=== PATIENT | female | born 1935 | race Caucasian/White ===

== ENCOUNTER 2019-01-06 13:29 | Inpatient (IN) | payer MEDICARE, OTHER ==
[~2019-01-06] VITALS: Ht 154.9 cm; Wt 49.4 kg
[2019-01-06 13:00] VITALS: BP 128/56
[~2019-01-06 13:29] MED LIST: ASPI81TA31 PO; Acetaminophen PO; BUME1TAB5 PO; LEVO25TA9 PO; MAGN400O6 PO; Metoprolol Tartrate PO; PANT40TA2 PO; WARF1TAB2 PO; WARF3TAB29 PO; Zolpidem Tartrate PO
--- NOTE | 2019-01-06 14:00 | NUR ---
PT ADMITTED MD GRANADOS HERE SAYS HE WILL DO ADMIT ORDERS FOR [facility]
[2019-01-06] MEDS ORDERED: FURO20TA4 PO (14:21)
[2019-01-06] MEDS ORDERED: ZOLP5TAB2 PO (14:21)
[2019-01-06] MEDS ORDERED: WARF2.5T47 PO (14:21)
[2019-01-06] MEDS ORDERED: METO25TA6 PO (14:21)
[2019-01-06] MEDS ORDERED: LEVO25TA2 PO (14:21)
[2019-01-06] MEDS ORDERED: PRED20TA PO (14:21)
[2019-01-06] MEDS ORDERED: DEXTROSE 50% 50 ML DISP.SYRIN IV PRN (14:30)
--- NOTE | 2019-01-06 17:00 | NUR ---
LEFT MESG FOR EPIC GROUP TO MD GRANADOS TO RECONCILE MEDS FOR
[2019-01-06] MEDS: BLOOD SUGAR DIAGNOSTIC 1 EACH STRIP VI SCH ×2 (17:29→20:10)
[2019-01-06] MEDS: INSULIN REGULAR, HUMAN 300 UNIT/3 ML VIAL SQ PRN (17:31)
--- NOTE | 2019-01-06 18:37 | NUR ---
LEFT MESG FOR MD GRANADOS TO RECONCILE MEDS.
[2019-01-06] MEDS ORDERED: MAGNESIUM HYDROXIDE 30 ML LIQUID UDC PO PRN (18:45)
[2019-01-06] MEDS ORDERED: ACETAMINOPHEN 325 MG TABLET PO PRN (18:45)
[2019-01-06] MEDS ORDERED: ZOLPIDEM 5 MG TABLET PO PRN (18:45)
[2019-01-06 19:43] VITALS: BP 113/53
[2019-01-06] MEDS ORDERED: METOPROLOL TARTRATE 25 MG TABLET PO SCH (21:00)
--- NOTE | 2019-01-06 21:30 | NUR ---
Received pt in bed, AAO x 3. No acute distress noted. Verbally responsive and able to make needs known. Denies pain or discomfort at this time. All safety measures and fall precautions maintained. BS checked and noted to be 103, no coverage provided per sliding scale as ordered by MD. Call light and all personal belongings within reach. Will continue to monitor.
[2019-01-07 06:18] VITALS: BP 100/53
[2019-01-07] MEDS: PANTOPRAZOLE SODIUM 40 MG TABLET.DR PO SCH (06:24)
[2019-01-07] MEDS: LEVOTHYROXINE SODIUM 25 MCG TABLET PO SCH (06:24)
[2019-01-07] MEDS: BLOOD SUGAR DIAGNOSTIC 1 EACH STRIP VI SCH ×4 (06:31→20:12)
[2019-01-07] MEDS ORDERED: WARFARIN SODIUM 2.5 MG TABLET PO SCH (09:00)
[2019-01-07] MEDS ORDERED: LEVOTHYROXINE SODIUM 25 MCG TABLET PO SCH (09:00)
[2019-01-07] MEDS ORDERED: WARF1TAB47 PO (09:05)
[2019-01-07] MEDS: BUMETANIDE 1 MG TABLET PO SCH (09:37)
[2019-01-07] MEDS: ASPIRIN 81 MG TAB.CHEW PO SCH (09:38)
[2019-01-07] MEDS: FUROSEMIDE 20 MG TABLET PO SCH (09:39)
[2019-01-07] MEDS: predniSONE 20 MG TABLET PO SCH (09:40)
[2019-01-07] MEDS: INSULIN REGULAR, HUMAN 300 UNIT/3 ML VIAL SQ PRN ×3 (11:44→20:25)
[2019-01-07] MEDS: METOPROLOL TARTRATE 25 MG TABLET PO SCH ×2 (11:53→20:05)
[2019-01-07] MEDS: WARFARIN SODIUM 2.5 MG TABLET PO SCH (16:40)
[2019-01-07] MEDS: WARFARIN SODIUM 1 MG TABLET PO SCH (16:41)
[2019-01-07 16:50] VITALS: BP 115/57
--- NOTE | 2019-01-07 17:08 | NUR ---
REFUSED HIS AM LABS. ATTEMPTED TO DO THEM THIS AFTERNOON. HE AGAIN REFUSED. NOTIFIED
[2019-01-07 17:58] LABS: *BILIRUBIN,URIN NEGATIVE (NEGATIVE); *CLARITY,URINE CLEAR (CLEAR); *COLOR,URINE YELLOW (YELLOW); *KETONES,URINE NEGATIVE (NEGATIVE); *UROBILINOGEN,URINE 0.2 E.U./dl (NORMAL); LEUKOCYTE ESTERASE ,URINE NEGATIVE (NEGATIVE); NITRITE, URINE NEGATIVE (NEGATIVE); UGLUCOSE NEGATIVE (NEGATIVE)
[2019-01-07 18:09] LABS: *CREATININE,URINE 28.1 mg/dL (30-125); *URINE TOTAL PROTEIN RANDOM < 6.0 mg/dL (<150/24HR)
[2019-01-07 18:23] LABS: *BLOOD, URINE TRACE (NEGATIVE)
[2019-01-07 18:25] LABS: MUCUS,URINE MODERATE /LPF (0-FEW); RBC,URINE 0-3 /HPF (0-3); SQUAMOUS EPITHELIAL CELL,UR FEW /HPF (NONE SEEN); WBC,URINE 0-3 /HPF (0-3)
[2019-01-07 19:33] VITALS: BP 125/63
[2019-01-07 19:41] VITALS: BP 125/63
--- NOTE | 2019-01-07 19:43 | NUR ---
SBAR RECEIVED FROM DAY SHIFT NURSE. PATIENT ALERT AND ORIENTED X 4. NO C/O SOB OR PAIN AT THIS TIME. PATIENT REQUEST SLEEPING MEDICATION FOR THIS EVENING. FAMILY AT BEDSIDE VISITING PATIENT. SIDE RAILS UP BILATERALLY FOR SAFETY. CALL LIGHT AND FREQUENTLY USED ITEMS WITHIN REACH. WILL CONTINUE TO MONITOR.
[2019-01-07] MEDS: ZOLPIDEM 5 MG TABLET PO PRN (20:05)
[2019-01-08 05:34] VITALS: BP 101/47
[2019-01-08] MEDS: LEVOTHYROXINE SODIUM 25 MCG TABLET PO SCH (06:26)
[2019-01-08] MEDS: PANTOPRAZOLE SODIUM 40 MG TABLET.DR PO SCH (06:26)
[2019-01-08] MEDS: BLOOD SUGAR DIAGNOSTIC 1 EACH STRIP VI SCH ×4 (06:32→20:15)
--- NOTE | 2019-01-08 06:40 | NUR ---
PATIENT SLEPT WELL DURING TAXONOMY TEACHER. ALL DUE MEDICATIONS GIVEN-TOLERATED WELL. PATIENT REQUEST MILK OF MAGNESIA AT 2100. BM DURING TAXONOMY TEACHER. PATIENT ASSISTED TO TOILET AND ASSISTED WITH EVENING ADL. SIDE RAILS UP BILATERALLY FOR SAFETY. CALL LIGHT AND FREQUENTLY USED ITEMS WITHIN REACH. WILL ENDORSE TO ONCOMING SHIFT ACCORDINGLY.
[2019-01-08 07:11] LABS: ALANINE AMINOTRANSFERASE 13 U/L (14-59); ALKALINE PHOSPHATASE 73 U/L (50-136); ASPARTATE AMINOTRANSFERASE 16 U/L (15-37); BILIRUBIN,TOTAL 0.5 mg/dL (0.2-1.0); CARBON DIOXIDE 32 mmol/L (21-32); CHLORIDE 101 mmol/L (98-107); CREATININE 1.7 mg/dL (0.6-1.3); GLUCOSE 142 mg/dL (74-106); MAGNESIUM 2.1 mg/dL (1.8-2.4); PHOSPHOROUS 2.8 mg/dL (2.5-4.9); POTASSIUM 4.5 mmol/L (3.5-5.1); TOTAL PROTEIN, SERUM 7.4 g/dL (6.4-8.2); UREA NITROGEN, BLOOD 45 mg/dL (7-18)
[2019-01-08 07:38] LABS: BASOPHILS % (AUTO) 0.3 % (0.0-2.0); EOSINOPHILS # (AUTO) 0.2 K/uL (0.0-0.7); EOSINOPHILS % (AUTO) 1.5 % (0.0-7.0); HEMATOCRIT 36.1 % (31.2-41.9); HEMOGLOBIN 11.7 g/dL (10.9-14.3); LYMPHOCYTES # (AUTO) 1.3 K/uL (20.0-40.0); LYMPHOCYTES % (AUTO) 11.8 % (20.5-51.5); MEAN CORPUSCULAR HEMOGLOBIN 29.5 uug (24.7-32.8); MEAN CORPUSCULAR HGB CONC 33 g/dL (32.3-35.6); MEAN CORPUSCULAR VOLUME 90.8 fL (75.5-95.3); MONOCYTES # (AUTO) 0.8 K/uL (2.0-10.0); MONOCYTES % (AUTO) 7.4 % (0.0-11.0); NEUTROPHILS # (AUTO) 8.7 K/uL (1.8-8.9); PLATELET COUNT (AUTO) 198 K/uL (179-408); RED BLOOD CELL COUNT(AUTO) 3.97 MIL/uL (3.63-4.92)
[2019-01-08] MEDS: INSULIN REGULAR, HUMAN 300 UNIT/3 ML VIAL SQ PRN ×4 (07:50→20:19)
[2019-01-08] MEDS: FUROSEMIDE 20 MG TABLET PO SCH (08:13)
[2019-01-08] MEDS: BUMETANIDE 1 MG TABLET PO SCH (08:13)
[2019-01-08] MEDS: predniSONE 20 MG TABLET PO SCH (08:13)
--- NOTE | 2019-01-08 08:15 | NUR ---
Received patient, awake alert x4. Not in any form of distress, no chest pains SOB or dizziness noted. Denies any pain at the moment. With intact saline lock over right inner forearm, patent and flushed accordingly. On O2 at 1LPM sating well.
[2019-01-08] MEDS: METOPROLOL TARTRATE 25 MG TABLET PO SCH ×2 (08:16→20:15)
[2019-01-08 09:00] VITALS: BP 111/63
[2019-01-08] MEDS: ASPIRIN 81 MG TAB.CHEW PO SCH (09:00)
--- NOTE | 2019-01-08 09:00 | NUR ---
Refused Aspirin and said her previous doctor said she did not need it, discussed risks and benefits but patient refused. Will try to verify with doctor and offer to give medication once again.
--- NOTE | 2019-01-08 11:30 | NUR ---
Tolerated therapy well. Kept on O2 at 1lpm sating well. No SOB, dizziness or chest pains noted. Seen by Dr Gibbs and Dr Gannon. Verified order for Aspirin. Dr Gibbs said it would have different function with Warfarin and she should still take it. Informed patient and discussed risks and benefits but patient still refused and said she has not taken it for 25 years.
[2019-01-08] MEDS: WARFARIN SODIUM 2.5 MG TABLET PO SCH (16:39)
[2019-01-08] MEDS: WARFARIN SODIUM 1 MG TABLET PO SCH (16:39)
[2019-01-08 17:00] VITALS: BP 115/58
[2019-01-08] MEDS ORDERED: WARFARIN SODIUM 1 MG TABLET PO SCH (18:45)
--- NOTE | 2019-01-08 18:50 | NUR ---
Medications tolerated well with apple sauce. Tolerated diet well. Still on O2 at 1lpm, sating well. No SOB, dizziness, chest pains or S/S of hypoglycemia noted.
--- NOTE | 2019-01-08 19:30 | NUR ---
REPORT RECEIVED FROM DAY SHIFT NURSE. PATIENT ALERT AND ORIENTED X 4. FARSI SPEAKING. NO C/O SOB OR PAIN AT THIS TIME. FAMILY AT BEDSIDE VISITING PATIENT. SIDE RAILS UP BILATERALLY FOR SAFETY. CALL LIGHT AND FREQUENTLY USED ITEMS WITHIN REACH. WILL CONTINUE TO MONITOR.
[2019-01-08 19:35] VITALS: BP 101/55
[2019-01-08] MEDS: ZOLPIDEM 5 MG TABLET PO PRN (20:19)
[2019-01-09 05:26] VITALS: BP 139/64
[2019-01-09] MEDS: PANTOPRAZOLE SODIUM 40 MG TABLET.DR PO SCH (06:26)
[2019-01-09] MEDS: LEVOTHYROXINE SODIUM 25 MCG TABLET PO SCH (06:26)
[2019-01-09] MEDS: BLOOD SUGAR DIAGNOSTIC 1 EACH STRIP VI SCH ×4 (06:32→20:21)
--- NOTE | 2019-01-09 06:43 | NUR ---
PATIENT ALERT AND ORIENTED THIS SHIFT. ALL DUE MEDICATIONS GIVEN-TOLERATED WELL. NO BM THIS SHIFT. PATIENT ASSISTED TO TOILET AND WITH EVENING ADL'S. SIDE RAILS UP BILATERALLY FOR SAFETY. CALL LIGHT AND FREQUENTLY USED ITEMS WITHIN REACH. WILL ENDORSE TO ONCOMING SHIFT ACCORDINGLY.
--- NOTE | 2019-01-09 07:45 | NUR ---
Patient noted sitting up in bed, assisted to restroom for toileting needs and to brush teeth, no complaints of pain noted, no signs of distress noted, took all AM medications, call light placed in reach, bed locked and in lowest positon, all needs met at this time
[2019-01-09] MEDS: BUMETANIDE 1 MG TABLET PO SCH (07:58)
[2019-01-09] MEDS: predniSONE 20 MG TABLET PO SCH (07:58)
[2019-01-09] MEDS: ASPIRIN 81 MG TAB.CHEW PO SCH (07:58)
[2019-01-09] MEDS: FUROSEMIDE 20 MG TABLET PO SCH (07:58)
[2019-01-09] MEDS: METOPROLOL TARTRATE 25 MG TABLET PO SCH ×2 (07:58→20:19)
[2019-01-09] MEDS: INSULIN REGULAR, HUMAN 300 UNIT/3 ML VIAL SQ PRN ×4 (08:03→20:25)
[2019-01-09 09:00] VITALS: BP 108/63
--- NOTE | 2019-01-09 13:15 | NUR ---
126/66, 89 HR, 92% on room air, 18 respiration, patient being transported to doctors appointment at this time via [facility] and [facility].
--- NOTE | 2019-01-09 13:45 | NUR ---
INDIVIDUALIZED OVERALL PLAN OF CARE
--- NOTE | 2019-01-09 14:26 | NUR ---
Desk Director Consult: Desk Director presented to ARU to meet with patient to provide support and assess needs. SW consulted with pt's RN Radha about the patient. Per RN, pt is out on a Pass for a Dental Appointment and will not return to the unit until about 5pm. SW inquired about pt's therapy schedule to ensure a time to meet with the patient. Per Radha, in collaboration with therapy team, SW can return to speak with pt at 9:30am tomorrow (01/10/19). SW will follow-up then.
--- NOTE | 2019-01-09 16:34 | NUR ---
Patient returned from dental appointment at 1545, no new orders, no complaints of pain noted, no signs of distress noted, 130/70, 80 HR, 18 pulse, 93% on room air
[2019-01-09] MEDS: WARFARIN SODIUM 2.5 MG TABLET PO SCH (17:15)
[2019-01-09] MEDS: WARFARIN SODIUM 1 MG TABLET PO SCH (17:15)
--- NOTE | 2019-01-09 17:40 | NUR ---
Received nutrition consult for low sugar food. OZ provided patient's son with verbal and handout on low sugar and CCHO 60 gm diet. Son denied pt is diabetic but stated her BG high dues to steroid. OZ explained following CCHO diet will help control BG. Son was receptive to the education. Addendum: 01/09/19 at [address] Amended: Links added.
[2019-01-09 18:29] VITALS: BP 130/70
[2019-01-09] MEDS ORDERED: WARFARIN SODIUM 3 MG TABLET PO SCH (18:45)
--- NOTE | 2019-01-09 19:13 | NUR ---
Shower given this shift Addendum: 01/09/19 at 1915 by GO RUANO RN RN ERROR
[2019-01-09 20:00] VITALS: BP 133/63
[2019-01-10 04:00] VITALS: BP 127/64
[2019-01-10] MEDS: LEVOTHYROXINE SODIUM 25 MCG TABLET PO SCH (06:18)
[2019-01-10] MEDS: PANTOPRAZOLE SODIUM 40 MG TABLET.DR PO SCH (06:18)
[2019-01-10] MEDS: BLOOD SUGAR DIAGNOSTIC 1 EACH STRIP VI SCH ×4 (06:33→20:21)
[2019-01-10 07:11] LABS: BASOPHILS % (AUTO) 0.2 % (0.0-2.0); EOSINOPHILS # (AUTO) 0.1 K/uL (0.0-0.7); EOSINOPHILS % (AUTO) 1.3 % (0.0-7.0); HEMATOCRIT 36.1 % (31.2-41.9); HEMOGLOBIN 11.7 g/dL (10.9-14.3); LYMPHOCYTES % (AUTO) 18.2 % (20.5-51.5); MEAN CORPUSCULAR HEMOGLOBIN 29.6 uug (24.7-32.8); MEAN CORPUSCULAR HGB CONC 33 g/dL (32.3-35.6); MEAN CORPUSCULAR VOLUME 91.1 fL (75.5-95.3); MONOCYTES # (AUTO) 0.9 K/uL (2.0-10.0); MONOCYTES % (AUTO) 8.5 % (0.0-11.0); NEUTROPHILS # (AUTO) 7.8 K/uL (1.8-8.9); NEUTROPHILS % (AUTO) 71.8 % (38.5-71.5); PLATELET COUNT (AUTO) 251 K/uL (179-408); RED BLOOD CELL COUNT(AUTO) 3.97 MIL/uL (3.63-4.92); WHITE BLOOD COUNT (AUTO) 10.9 K/uL (3.8-11.8)
--- NOTE | 2019-01-10 07:35 | NUR ---
Patient noted resting in bed with eyes closed, no complaints of pain at this time, no signs of distress, call light in reach, bed locked and in lowest position, all needs met at this time
[2019-01-10 07:46] LABS: ALANINE AMINOTRANSFERASE 16 U/L (14-59); ALKALINE PHOSPHATASE 63 U/L (50-136); ASPARTATE AMINOTRANSFERASE 20 U/L (15-37); BILIRUBIN,TOTAL 0.4 mg/dL (0.2-1.0); CARBON DIOXIDE 35 mmol/L (21-32); CHLORIDE 101 mmol/L (98-107); CHOLESTEROL 175 mg/dL (<200); CREATININE 1.6 mg/dL (0.6-1.3); GLUCOSE 129 mg/dL (74-106); HDL CHOLESTEROL 52 mg/dL (40-60); MAGNESIUM 2.2 mg/dL (1.8-2.4); PHOSPHOROUS 3.7 mg/dL (2.5-4.9); POTASSIUM 4.2 mmol/L (3.5-5.1); TOTAL PROTEIN, SERUM 7.1 g/dL (6.4-8.2); TRIGLYCERIDES 48 MG/DL (30-150); UREA NITROGEN, BLOOD 54 mg/dL (7-18)
[2019-01-10] MEDS: predniSONE 10 MG TABLET PO SCH (08:25)
[2019-01-10] MEDS: METOPROLOL TARTRATE 25 MG TABLET PO SCH ×2 (08:25→20:18)
[2019-01-10] MEDS: BUMETANIDE 1 MG TABLET PO SCH (08:25)
[2019-01-10] MEDS: ASPIRIN 81 MG TAB.CHEW PO SCH (08:25)
[2019-01-10 08:26] LABS: THYROID STIMULATING HORMONE 0.417 mIU/mL (0.358-3.740)
[2019-01-10] MEDS: INSULIN REGULAR, HUMAN 300 UNIT/3 ML VIAL SQ PRN ×3 (12:18→20:21)
[2019-01-10] MEDS: WARFARIN SODIUM 1 MG TABLET PO SCH (17:06)
[2019-01-10] MEDS: WARFARIN SODIUM 2.5 MG TABLET PO SCH (17:06)
[2019-01-10 19:43] VITALS: BP 110/61
[2019-01-11 04:00] VITALS: BP 122/68
[2019-01-11] MEDS: LEVOTHYROXINE SODIUM 25 MCG TABLET PO SCH (06:31)
[2019-01-11] MEDS: PANTOPRAZOLE SODIUM 40 MG TABLET.DR PO SCH (06:31)
[2019-01-11] MEDS: BLOOD SUGAR DIAGNOSTIC 1 EACH STRIP VI SCH ×4 (06:36→20:31)
[2019-01-11 08:29] VITALS: BP 130/69
[2019-01-11] MEDS: ASPIRIN 81 MG TAB.CHEW PO SCH (08:34)
[2019-01-11] MEDS: METOPROLOL TARTRATE 25 MG TABLET PO SCH ×2 (08:34→20:31)
[2019-01-11] MEDS: INSULIN REGULAR, HUMAN 300 UNIT/3 ML VIAL SQ PRN ×4 (08:35→20:35)
[2019-01-11] MEDS: predniSONE 10 MG TABLET PO SCH (08:35)
[2019-01-11] MEDS: BUMETANIDE 1 MG TABLET PO SCH (08:35)
--- NOTE | 2019-01-11 09:28 | NUR ---
Received pt. in bed, A/OX4 verbally responsive Denies CP or SOB, on 1L of O2 tolerating well. All due medications administered as ordered and tolerated well. No s/sx of bleeding 2/2 use of Coumadin. No Humalin R given per sliding scale, BS this AM was 94. RFA PIV (20G) patent and intact. Safety measures maintained. Call light and all frequently used items within pt. reach. Will continue to monitor accordingly.
--- NOTE | 2019-01-11 13:30 | NUR ---
INDIVIDUALIZED OVERALL PLAN OF CARE
[2019-01-11] MEDS: WARFARIN SODIUM 2.5 MG TABLET PO SCH (17:32)
[2019-01-11] MEDS: WARFARIN SODIUM 1 MG TABLET PO SCH (17:32)
--- NOTE | 2019-01-11 19:05 | NUR ---
Received patient sleeping at this time. No s/s of respiratory distress noted. HOB elevated with O2 at 1L via NC. Safety measure and fall precaution maintained. Continue care as planned.
--- NOTE | 2019-01-11 19:18 | NUR ---
End of shift note: All due medications administered as ordered and tolerated well. No sign of acute distress or SOB was noted. Kept pt clean and dry throughout this shift. Safety measures maintained. All needs attended and met promptly. Bed in low position, brake and alarm on, side rails up x2 as an enabler. Call light and all frequently used items within pt. reach. Will endorse to next shift accordingly.
[2019-01-11 20:00] VITALS: BP 125/71
--- NOTE | 2019-01-11 20:06 | NUR ---
Awakened, presented complaint of right shoulder, medicated as ordered and needed. Will monitor.
[2019-01-12] MEDS: BLOOD SUGAR DIAGNOSTIC 1 EACH STRIP VI SCH ×4 (06:48→20:07)
[2019-01-12] MEDS: LEVOTHYROXINE SODIUM 25 MCG TABLET PO SCH (06:54)
[2019-01-12] MEDS: PANTOPRAZOLE SODIUM 40 MG TABLET.DR PO SCH (06:54)
[2019-01-12 07:10] VITALS: BP 121/63
--- NOTE | 2019-01-12 07:44 | NUR ---
Shift End Report: Uneventful night. Medicated once for pain with relief. No further complaint presented. No fall/injury. All needs attended and met. Continue current rehab plan of care.VS stable.
[2019-01-12 08:30] VITALS: BP_SYST 116; BP_SYST 141; BP_DIAS 43; BP_DIAS 51
[2019-01-12] MEDS: predniSONE 10 MG TABLET PO SCH (08:51)
[2019-01-12] MEDS: METOPROLOL TARTRATE 25 MG TABLET PO SCH ×2 (08:51→20:10)
[2019-01-12] MEDS: ASPIRIN 81 MG TAB.CHEW PO SCH (08:51)
[2019-01-12] MEDS: GLIMEPIRIDE 2 MG TABLET PO SCH (08:52)
[2019-01-12] MEDS: BUMETANIDE 1 MG TABLET PO SCH (08:52)
[2019-01-12] MEDS: INSULIN REGULAR, HUMAN 300 UNIT/3 ML VIAL SQ PRN ×3 (12:04→20:08)
--- NOTE | 2019-01-12 16:15 | NUR ---
INTERDISCIPLINARY TEAM CONFERENCE
[2019-01-12 16:25] VITALS: BP 100/58
[2019-01-12] MEDS: WARFARIN SODIUM 1 MG TABLET PO SCH (17:31)
[2019-01-12] MEDS: WARFARIN SODIUM 2.5 MG TABLET PO SCH (17:32)
[2019-01-12] MEDS: ATORVASTATIN 10 MG TABLET PO SCH (20:07)
[2019-01-12 20:13] VITALS: BP 106/55
[2019-01-13] MEDS: LEVOTHYROXINE SODIUM 25 MCG TABLET PO SCH (06:34)
[2019-01-13] MEDS: PANTOPRAZOLE SODIUM 40 MG TABLET.DR PO SCH (06:34)
[2019-01-13] MEDS: BLOOD SUGAR DIAGNOSTIC 1 EACH STRIP VI SCH ×4 (06:37→20:42)
[2019-01-13 06:50] VITALS: BP 121/58
[2019-01-13 08:02] VITALS: BP 133/70
[2019-01-13] MEDS: BUMETANIDE 1 MG TABLET PO SCH (08:41)
[2019-01-13] MEDS: ASPIRIN 81 MG TAB.CHEW PO SCH (08:43)
[2019-01-13] MEDS: predniSONE 10 MG TABLET PO SCH (08:43)
[2019-01-13] MEDS: GLIMEPIRIDE 2 MG TABLET PO SCH (08:44)
[2019-01-13] MEDS: METOPROLOL TARTRATE 25 MG TABLET PO SCH ×2 (08:51→20:43)
[2019-01-13 15:55] VITALS: BP 121/69
[2019-01-13] MEDS: WARFARIN SODIUM 2.5 MG TABLET PO SCH (16:38)
[2019-01-13] MEDS: WARFARIN SODIUM 1 MG TABLET PO SCH (16:40)
[2019-01-13] MEDS: INSULIN REGULAR, HUMAN 300 UNIT/3 ML VIAL SQ PRN (16:41)
--- NOTE | 2019-01-13 19:05 | NUR ---
Awake during initial rounds. Denies any pain/discomforts at this time. Safety measures and fall precaution maintained. Continue care as planned.
[2019-01-13 19:33] VITALS: BP 95/65
[2019-01-13] MEDS: ATORVASTATIN 10 MG TABLET PO SCH (20:42)
--- NOTE | 2019-01-13 21:42 | NUR ---
Seen ambulating in the hallways with walker in slow but steady gait.
[2019-01-14 05:12] VITALS: BP 126/66
[2019-01-14] MEDS: LEVOTHYROXINE SODIUM 25 MCG TABLET PO SCH (06:29)
[2019-01-14] MEDS: PANTOPRAZOLE SODIUM 40 MG TABLET.DR PO SCH (06:29)
[2019-01-14] MEDS: BLOOD SUGAR DIAGNOSTIC 1 EACH STRIP VI SCH ×4 (06:37→21:08)
--- NOTE | 2019-01-14 06:54 | NUR ---
Shift End Report: Slept good. No complaint presented all night. No fall/injury. Denies s/s of hypoglycemia. [place] juice given for FBS 70 mg/dl. Will recheck again later. Continue current rehab plan of care.
[2019-01-14 08:00] VITALS: BP 111/66
[2019-01-14] MEDS: ASPIRIN 81 MG TAB.CHEW PO SCH (09:00)
[2019-01-14] MEDS: GLIMEPIRIDE 2 MG TABLET PO SCH (09:01)
[2019-01-14] MEDS: predniSONE 10 MG TABLET PO SCH (09:02)
[2019-01-14] MEDS: BUMETANIDE 1 MG TABLET PO SCH (09:02)
[2019-01-14] MEDS: METOPROLOL TARTRATE 25 MG TABLET PO SCH ×2 (09:12→21:00)
[2019-01-14] MEDS: LINAGLIPTIN 5 MG TABLET PO SCH (12:06)
[2019-01-14] MEDS: INSULIN REGULAR, HUMAN 300 UNIT/3 ML VIAL SQ PRN ×2 (12:11→21:15)
[2019-01-14 16:28] VITALS: BP 91/40
[2019-01-14] MEDS: WARFARIN SODIUM 1 MG TABLET PO SCH (16:57)
[2019-01-14] MEDS: WARFARIN SODIUM 2.5 MG TABLET PO SCH (16:58)
--- NOTE | 2019-01-14 18:39 | NUR ---
Pt received sitting up in bed, assessed, NAD and no SOB reported. Pt denies pain. Pt cooperative with all therapies as offered and compliant with routine medications, refusing aspirin due to taking Coumadin. Today's lab values WNL. Daily 3.5mg Coumadin administered per MD orders. BS prior to dinner 118, no coverage needed. All comfort and safety measures implemented. Bed in locked and lowest position with side rails up x2. Call light placed within reach. Will continue to monitor and endorse to oncoming night nurse.
[2019-01-14 19:40] VITALS: BP 100/53
--- NOTE | 2019-01-14 19:40 | NUR ---
Patient received in bed. AAO x4. No acute distress or SOB was noted. On O2 1L via NC. No complain of pain at this time. Patient assessed. V/S checked. Safety measures maintained, Fall precaution observed, Bed in low position, brake and alarm on, side rails up x2 for safety. Continue to monitor.
[2019-01-14 20:14] VITALS: BP 100/53
[2019-01-14] MEDS: ATORVASTATIN 10 MG TABLET PO SCH (21:09)
--- NOTE | 2019-01-14 21:15 | NUR ---
Metoprolol was held because of low blood pressure 100/53, HR:80. Continue to monitor.
[2019-01-15 05:48] VITALS: BP 118/69
[2019-01-15] MEDS: PANTOPRAZOLE SODIUM 40 MG TABLET.DR PO SCH (06:29)
[2019-01-15] MEDS: LEVOTHYROXINE SODIUM 25 MCG TABLET PO SCH (06:29)
[2019-01-15 08:00] VITALS: BP 91/51
[2019-01-15] MEDS: GLIMEPIRIDE 2 MG TABLET PO SCH (08:15)
[2019-01-15] MEDS: ASPIRIN 81 MG TAB.CHEW PO SCH (08:15)
[2019-01-15] MEDS: LINAGLIPTIN 5 MG TABLET PO SCH (08:15)
[2019-01-15] MEDS: BUMETANIDE 1 MG TABLET PO SCH (08:15)
[2019-01-15] MEDS: predniSONE 10 MG TABLET PO SCH (08:16)
[2019-01-15] MEDS: METOPROLOL TARTRATE 25 MG TABLET PO SCH ×2 (09:00→20:25)
[2019-01-15] MEDS: BLOOD SUGAR DIAGNOSTIC 1 EACH STRIP VI SCH ×4 (11:30→20:28)
[2019-01-15 16:24] VITALS: BP 128/49
[2019-01-15] MEDS: WARFARIN SODIUM 2.5 MG TABLET PO SCH (16:30)
[2019-01-15] MEDS: WARFARIN SODIUM 1 MG TABLET PO SCH (16:33)
[2019-01-15] MEDS: INSULIN REGULAR, HUMAN 300 UNIT/3 ML VIAL SQ PRN ×2 (16:37→20:29)
--- NOTE | 2019-01-15 19:05 | NUR ---
Seen ambulating in the hallways with FWW with slow but steady gait. NO SOB/SOBOE noted. Denies any pain/discomforts at this time.
[2019-01-15 20:06] VITALS: BP 126/67
[2019-01-15] MEDS: ATORVASTATIN 10 MG TABLET PO SCH (20:25)
[2019-01-16 05:19] VITALS: BP 108/57
--- NOTE | 2019-01-16 05:29 | NUR ---
Shift End Report: Slept good. No complaint presented all night. No fall/injury. All needs attended and met. VSS. Uneventful night. Continue current rehab plan of care.
[2019-01-16] MEDS: LEVOTHYROXINE SODIUM 25 MCG TABLET PO SCH (06:35)
[2019-01-16] MEDS: PANTOPRAZOLE SODIUM 40 MG TABLET.DR PO SCH (06:35)
[2019-01-16] MEDS: BLOOD SUGAR DIAGNOSTIC 1 EACH STRIP VI SCH ×2 (06:40→11:17)
[2019-01-16 06:47] LABS: BASOPHILS # (AUTO) 0.1 K/uL (0.0-8.0); BASOPHILS % (AUTO) 0.6 % (0.0-2.0); EOSINOPHILS # (AUTO) 0.2 K/uL (0.0-0.7); EOSINOPHILS % (AUTO) 1.5 % (0.0-7.0); HEMATOCRIT 35.9 % (31.2-41.9); HEMOGLOBIN 11.7 g/dL (10.9-14.3); LYMPHOCYTES # (AUTO) 2.3 K/uL (20.0-40.0); LYMPHOCYTES % (AUTO) 15.6 % (20.5-51.5); MEAN CORPUSCULAR HEMOGLOBIN 29.3 uug (24.7-32.8); MEAN CORPUSCULAR HGB CONC 33 g/dL (32.3-35.6); MEAN CORPUSCULAR VOLUME 90.1 fL (75.5-95.3); MONOCYTES # (AUTO) 1.4 K/uL (2.0-10.0); MONOCYTES % (AUTO) 9.6 % (0.0-11.0); NEUTROPHILS # (AUTO) 10.8 K/uL (1.8-8.9); NEUTROPHILS % (AUTO) 72.7 % (38.5-71.5); PLATELET COUNT (AUTO) 294 K/uL (179-408); RED BLOOD CELL COUNT(AUTO) 3.99 MIL/uL (3.63-4.92); WHITE BLOOD COUNT (AUTO) 14.8 K/uL (3.8-11.8)
[2019-01-16 07:00] LABS: CARBON DIOXIDE 33 mmol/L (21-32); CHLORIDE 104 mmol/L (98-107); CREATININE 1.7 mg/dL (0.6-1.3); GLUCOSE 71 mg/dL (74-106); MAGNESIUM 1.8 mg/dL (1.8-2.4); PHOSPHOROUS 3.3 mg/dL (2.5-4.9); POTASSIUM 4.3 mmol/L (3.5-5.1); UREA NITROGEN, BLOOD 57 mg/dL (7-18)
[2019-01-16 07:21] LABS: LYMPHOCYTES % (MANUAL) 16 % (20-40); MONOCYTES % (MANUAL) 12 % (2-10); NEUTROPHILS % (MANUAL) 71 % (42-75)
[2019-01-16 07:22] LABS: EOSINOPHILS % (MANUAL) 1 % (0-8)
[2019-01-16 09:21] VITALS: BP 101/65
[2019-01-16] MEDS: LINAGLIPTIN 5 MG TABLET PO SCH (09:21)
[2019-01-16] MEDS: METOPROLOL TARTRATE 25 MG TABLET PO SCH (09:21)
[2019-01-16] MEDS: GLIMEPIRIDE 2 MG TABLET PO SCH (09:22)
[2019-01-16] MEDS: ASPIRIN 81 MG TAB.CHEW PO SCH (09:23)
[2019-01-16] MEDS: BUMETANIDE 1 MG TABLET PO SCH (09:23)
[2019-01-16] MEDS: predniSONE 10 MG TABLET PO SCH (09:23)
--- NOTE | 2019-01-16 12:21 | NUR ---
Patient for discharge to home around 1-2pm via private car in stable condition. Patient seen and examined by MD Balderas with order urinalysis profile-collected and sent to lab for WBC 14.8 not in distress. will continue monitor
[2019-01-16 13:05] LABS: *BILIRUBIN,URIN NEGATIVE (NEGATIVE); *BLOOD, URINE NEGATIVE (NEGATIVE); *CLARITY,URINE CLEAR (CLEAR); *COLOR,URINE YELLOW (YELLOW); *KETONES,URINE NEGATIVE (NEGATIVE); *UROBILINOGEN,URINE 0.2 E.U./dl (NORMAL); LEUKOCYTE ESTERASE ,URINE NEGATIVE (NEGATIVE); NITRITE, URINE NEGATIVE (NEGATIVE); PH,URINE 5.5 (5.0-8.0); UGLUCOSE NEGATIVE (NEGATIVE)
--- NOTE | 2019-01-16 13:30 | NUR ---
Patient discharge to home at 130pm via private car with son in stable condition. not in distress. medicine instruction laboratory results given with son, verbalize understanding. medication prescription fax to pharmacy. Advice ff up with primary physician.
== END 2019-01-16 13:30 | disposition home health service (06) | DRG 196 ==
PROVIDERS: ADMIT Physical Medicine & Rehabilitation Pain Medicine; ATTEND Physical Medicine & Rehabilitation Pain Medicine
DX: J84.10 Pulmonary fibrosis, unspecified (principal); J96.21 Acute and chronic respiratory failure with hypoxia; I13.0 Hypertensive heart and chronic kidney disease with heart failure and stage 1 through stage 4 chronic kidney disease, or unspecified chronic kidney disease; D68.59 Other primary thrombophilia; E44.0 Moderate protein-calorie malnutrition; I50.32 Chronic diastolic (congestive) heart failure; J44.9 Chronic obstructive pulmonary disease, unspecified; E11.22 Type 2 diabetes mellitus with diabetic chronic kidney disease; I27.20 Pulmonary hypertension, unspecified; N18.3 Chronic kidney disease, stage 3 (moderate); Z79.01 Long term (current) use of anticoagulants; Z95.2 Presence of prosthetic heart valve; Z99.81 Dependence on supplemental oxygen; Z79.4 Long term (current) use of insulin; E03.9 Hypothyroidism, unspecified; E11.65 Type 2 diabetes mellitus with hyperglycemia; Z68.20 Body mass index [BMI] 20.0-20.9, adult; E78.5 Hyperlipidemia, unspecified; I48.2 Chronic atrial fibrillation; I70.0 Atherosclerosis of aorta; K21.9 Gastro-esophageal reflux disease without esophagitis; M89.9 Disorder of bone, unspecified
CPT/HCPCS: 36415; 71045; 82652; 83735; 84100; 84156; 84300; 84443; 85025; 85610; 87086; 92523; 92526; 92610; 93307; 97110; 97112; 97116; 97530; 97535; J1815; J7512

== ENCOUNTER 2019-05-13 14:33 | Inpatient (IN) | payer MEDICARE, OTHER ==
[~2019-05-13] VITALS: Ht 165.1 cm; Wt 52.2 kg
[~2019-05-13 14:33] MED LIST changes: +BUME1TAB34 PO; -BUME1TAB5 PO; +FURO20TA4 PO; +METO25TA6 PO; -Metoprolol Tartrate PO; +PRED20TA PO; -WARF1TAB2 PO; +WARF1TAB47 PO; -WARF3TAB29 PO; +ZOLP5TAB2 PO; -Zolpidem Tartrate PO
[2019-05-13] MEDS ORDERED: FUROSEMIDE 20 MG/2 ML VIAL IVP ONE (15:00)
[2019-05-13] MEDS ORDERED: IV NORMAL SALINE 500 ML BAG IV ONE (15:00)
[2019-05-13] MEDS ORDERED: NITROGLYCERIN OINT 1 GM PACKET TP ONE ×4 (15:00→17:00)
[2019-05-13] MEDS ORDERED: FUROSEMIDE 40 MG/4 ML VIAL ONE (15:01)
[2019-05-13 15:16] LABS: BASOPHILS % (AUTO) 0.4 % (0.0-2.0); EOSINOPHILS # (AUTO) 0.2 K/uL (0.0-0.7); EOSINOPHILS % (AUTO) 1.6 % (0.0-7.0); HEMATOCRIT 37.3 % (31.2-41.9); LYMPHOCYTES # (AUTO) 0.9 K/uL (20.0-40.0); LYMPHOCYTES % (AUTO) 8.3 % (20.5-51.5); MEAN CORPUSCULAR HEMOGLOBIN 29.4 uug (24.7-32.8); MEAN CORPUSCULAR HGB CONC 32 g/dL (32.3-35.6); MEAN CORPUSCULAR VOLUME 91.6 fL (75.5-95.3); MONOCYTES # (AUTO) 0.7 K/uL (2.0-10.0); MONOCYTES % (AUTO) 6.2 % (0.0-11.0); NEUTROPHILS # (AUTO) 8.9 K/uL (1.8-8.9); NEUTROPHILS % (AUTO) 83.5 % (38.5-71.5); PLATELET COUNT (AUTO) 216 K/uL (179-408); RED BLOOD CELL COUNT(AUTO) 4.08 MIL/uL (3.63-4.92); WHITE BLOOD COUNT (AUTO) 10.7 K/uL (3.8-11.8)
[2019-05-13 15:27] LABS: CARBON DIOXIDE 31 mmol/L (21-32); CHLORIDE 103 mmol/L (98-107); CREATININE 1.7 mg/dL (0.6-1.3); GLUCOSE 212 mg/dL (74-106); POTASSIUM 5.2 mmol/L (3.5-5.1); UREA NITROGEN, BLOOD 30 mg/dL (7-18)
[2019-05-13 15:40] LABS: ALANINE AMINOTRANSFERASE 12 U/L (14-59); ALKALINE PHOSPHATASE 74 U/L (50-136); ASPARTATE AMINOTRANSFERASE 23 U/L (15-37); BILIRUBIN,DIRECT 0.3 mg/dL (0.0-0.2); BILIRUBIN,TOTAL 0.8 mg/dL (0.2-1.0); TOTAL PROTEIN, SERUM 8.1 g/dL (6.4-8.2)
[2019-05-13] MEDS ORDERED: WARF3TAB29 PO ×2 (15:48→15:55)
[2019-05-13] MEDS ORDERED: ALBU18HF2 INH (15:49)
[2019-05-13] MEDS ORDERED: INSULIN (15:51)
[2019-05-13] MEDS ORDERED: NOREPINEPHRINE BITARTRATE 4 MG/4 ML VIAL IV ONE (16:22)
[2019-05-13] MEDS ORDERED: Z GUARD REMEDY PASTE 57 GM TUBE TOP PRN (16:30)
[2019-05-13] MEDS ORDERED: ACETAMINOPHEN 325 MG TABLET PO PRN (16:30)
[2019-05-13] MEDS ORDERED: DEXTROSE 50% 50 ML DISP.SYRIN IV PRN (16:30)
[2019-05-13] MEDS ORDERED: NOREPINEPHRINE BITARTRATE 8 MG in IV DEXTROSE 5% 500 ML IV ONE (16:30)
[2019-05-13] MEDS ORDERED: MAGNESIUM HYDROXIDE 30 ML LIQUID UDC PO PRN (16:30)
[2019-05-13] MEDS ORDERED: ONDANSETRON 4 MG/2 ML VIAL IV PRN (16:30)
[2019-05-13] MEDS ORDERED: MORPHINE SULFATE 2 MG/1 ML DISP.SYRIN IV PRN (16:30)
[2019-05-13] MEDS ORDERED: SODIUM POLYSTYRENE SULFONATE 15 G/60 ML LIQUID UDC PO ONE (16:45)
[2019-05-13] MEDS ORDERED: WARFARIN SODIUM 5 MG TABLET PO SCH (17:20)
[2019-05-13] MEDS ORDERED: NOREPINEPHRINE BITARTRATE 8 MG in IV DEXTROSE 5% 500 ML IV PRN (17:30)
[2019-05-13] MEDS ORDERED: ALBUTEROL SULFATE 2.5 MG/ 0.5 ML NEBU NEB PRN (17:30)
[2019-05-13] MEDS: WARFARIN SODIUM 1 MG TABLET PO SCH (19:23)
[2019-05-13 19:30] VITALS: BP 144/77
[2019-05-13] MEDS: METOPROLOL TARTRATE 25 MG TABLET PO SCH (19:36)
[2019-05-13] MEDS: BLOOD SUGAR DIAGNOSTIC 1 EACH STRIP VI SCH ×2 (19:43→22:13)
[2019-05-13] MEDS: INSULIN REGULAR, HUMAN 300 UNIT/3 ML VIAL SQ PRN ×2 (19:46→22:15)
[2019-05-13] MEDS ORDERED: SODIUM POLYSTYRENE SULFONATE ENEMA 30 G/120 ML BOTTLE RC ONE (19:50)
[2019-05-13 20:00] VITALS: BP 118/72
[2019-05-13 21:00] VITALS: BP 127/60
[2019-05-13] MEDS: FUROSEMIDE 40 MG/4 ML VIAL IV SCH (21:08)
[2019-05-13] MEDS: ZOLPIDEM 5 MG TABLET PO PRN (21:17)
[2019-05-13 22:00] VITALS: BP 132/94
[2019-05-13 23:00] VITALS: BP 108/57
[2019-05-14] VITALS (14 sets, daily range): BP systolic 95–134; BP diastolic 49–73
[2019-05-14 05:20] LABS: BASOPHILS % (AUTO) 0.3 % (0.0-2.0); EOSINOPHILS # (AUTO) 0.4 K/uL (0.0-0.7); EOSINOPHILS % (AUTO) 3.8 % (0.0-7.0); HEMATOCRIT 36.9 % (31.2-41.9); LYMPHOCYTES # (AUTO) 1.3 K/uL (20.0-40.0); LYMPHOCYTES % (AUTO) 12.7 % (20.5-51.5); MEAN CORPUSCULAR HEMOGLOBIN 29.6 uug (24.7-32.8); MEAN CORPUSCULAR HGB CONC 32 g/dL (32.3-35.6); MEAN CORPUSCULAR VOLUME 91.2 fL (75.5-95.3); MONOCYTES % (AUTO) 9.8 % (0.0-11.0); NEUTROPHILS # (AUTO) 7.6 K/uL (1.8-8.9); NEUTROPHILS % (AUTO) 73.4 % (38.5-71.5); PLATELET COUNT (AUTO) 214 K/uL (179-408); RED BLOOD CELL COUNT(AUTO) 4.05 MIL/uL (3.63-4.92); WHITE BLOOD COUNT (AUTO) 10.4 K/uL (3.8-11.8)
[2019-05-14 05:23] LABS: ALANINE AMINOTRANSFERASE 11 U/L (14-59); ALKALINE PHOSPHATASE 78 U/L (50-136); ASPARTATE AMINOTRANSFERASE 20 U/L (15-37); BILIRUBIN,TOTAL 0.8 mg/dL (0.2-1.0); CARBON DIOXIDE 39 mmol/L (21-32); CHLORIDE 102 mmol/L (98-107); CHOLESTEROL 102 mg/dL (<200); CREATININE 2.1 mg/dL (0.6-1.3); GLUCOSE 111 mg/dL (74-106); HDL CHOLESTEROL 42 mg/dL (40-60); MAGNESIUM 1.7 mg/dL (1.8-2.4); PHOSPHOROUS 4.5 mg/dL (2.5-4.9); POTASSIUM 4.3 mmol/L (3.5-5.1); TOTAL PROTEIN, SERUM 7.8 g/dL (6.4-8.2); TRIGLYCERIDES 60 MG/DL (30-150); UREA NITROGEN, BLOOD 29 mg/dL (7-18)
[2019-05-14] MEDS: PANTOPRAZOLE SODIUM 40 MG TABLET.DR PO SCH (06:48)
[2019-05-14] MEDS: LEVOTHYROXINE SODIUM 25 MCG TABLET PO SCH (06:48)
[2019-05-14] MEDS: BLOOD SUGAR DIAGNOSTIC 1 EACH STRIP VI SCH ×4 (07:19→21:12)
[2019-05-14] MEDS: FUROSEMIDE 40 MG/4 ML VIAL IV SCH (09:05)
[2019-05-14] MEDS: METOPROLOL TARTRATE 25 MG TABLET PO SCH ×2 (11:31→16:35)
[2019-05-14] MEDS: INSULIN REGULAR, HUMAN 300 UNIT/3 ML VIAL SQ PRN ×2 (12:14→21:15)
[2019-05-14] MEDS ORDERED: MAGNESIUM SULFATE/D5W 100 ML IV SCH (13:45)
[2019-05-14] MEDS: WARFARIN SODIUM 1 MG TABLET PO SCH (17:22)
[2019-05-14] MEDS ORDERED: FUROSEMIDE 40 MG/4 ML VIAL IV SCH (21:00)
[2019-05-15 00:13] VITALS: BP 96/49
[2019-05-15 04:00] VITALS: BP 105/52
[2019-05-15] MEDS: PANTOPRAZOLE SODIUM 40 MG TABLET.DR PO SCH (06:19)
[2019-05-15] MEDS: LEVOTHYROXINE SODIUM 25 MCG TABLET PO SCH (06:19)
[2019-05-15] MEDS: BLOOD SUGAR DIAGNOSTIC 1 EACH STRIP VI SCH ×4 (06:33→20:31)
[2019-05-15 06:34] LABS: BASOPHILS % (AUTO) 0.3 % (0.0-2.0); EOSINOPHILS # (AUTO) 0.5 K/uL (0.0-0.7); EOSINOPHILS % (AUTO) 4.3 % (0.0-7.0); HEMATOCRIT 39.1 % (31.2-41.9); HEMOGLOBIN 12.3 g/dL (10.9-14.3); LYMPHOCYTES # (AUTO) 1.2 K/uL (20.0-40.0); LYMPHOCYTES % (AUTO) 11.1 % (20.5-51.5); MEAN CORPUSCULAR HEMOGLOBIN 28.7 uug (24.7-32.8); MEAN CORPUSCULAR HGB CONC 31 g/dL (32.3-35.6); MEAN CORPUSCULAR VOLUME 91.5 fL (75.5-95.3); MONOCYTES # (AUTO) 1.2 K/uL (2.0-10.0); MONOCYTES % (AUTO) 10.7 % (0.0-11.0); NEUTROPHILS # (AUTO) 8.3 K/uL (1.8-8.9); NEUTROPHILS % (AUTO) 73.6 % (38.5-71.5); PLATELET COUNT (AUTO) 218 K/uL (179-408); RED BLOOD CELL COUNT(AUTO) 4.28 MIL/uL (3.63-4.92); WHITE BLOOD COUNT (AUTO) 11.3 K/uL (3.8-11.8)
[2019-05-15 06:57] LABS: CARBON DIOXIDE 39 mmol/L (21-32); CHLORIDE 99 mmol/L (98-107); CREATININE 2.1 mg/dL (0.6-1.3); GLUCOSE 126 mg/dL (74-106); PHOSPHOROUS 3.8 mg/dL (2.5-4.9); POTASSIUM 4.4 mmol/L (3.5-5.1)
[2019-05-15 07:04] LABS: UREA NITROGEN, BLOOD 41 mg/dL (7-18)
[2019-05-15] MEDS: METOPROLOL TARTRATE 25 MG TABLET PO SCH ×2 (09:00→16:10)
[2019-05-15] MEDS: INSULIN REGULAR, HUMAN 300 UNIT/3 ML VIAL SQ PRN ×3 (11:29→20:33)
[2019-05-15] MEDS: HYDROCODONE/APAP 5-325MG TABLET PO PRN (11:36)
[2019-05-15 11:39] VITALS: BP 100/43
[2019-05-15] MEDS ORDERED: methylPREDNISolone SOD SUCC 125 MG/2 ML VIAL IV SCH (11:45)
[2019-05-15] MEDS: methylPREDNISolone SOD SUCC 125 MG/2 ML VIAL IV SCH ×2 (13:52→21:24)
[2019-05-15] MEDS: MIRALAX 17 GM POWD.PACK PO SCH (13:52)
[2019-05-15 15:22] VITALS: BP 94/44
[2019-05-15] MEDS: FUROSEMIDE 40 MG/4 ML VIAL IV SCH ×2 (16:04→22:09)
[2019-05-15] MEDS ORDERED: WARFARIN SODIUM 1 MG TABLET PO SCH (17:00)
[2019-05-15] MEDS ORDERED: WARFARIN SODIUM 5 MG TABLET PO SCH (17:00)
[2019-05-15] MEDS: IPRATROPIUM BROMIDE 0.5 MG/2.5 ML NEBU NEB PRN (19:58)
[2019-05-15] MEDS: LEVALBUTEROL HCL NEB 0.63 MG/3 ML NEBU NEB PRN (19:58)
[2019-05-15 20:23] VITALS: BP 114/65
[2019-05-15] MEDS: ZOLPIDEM 5 MG TABLET PO PRN (22:52)
[2019-05-16] MEDS: methylPREDNISolone SOD SUCC 125 MG/2 ML VIAL IV SCH (06:29)
[2019-05-16 06:31] LABS: HEMATOCRIT 37.8 % (31.2-41.9); HEMOGLOBIN 12.4 g/dL (10.9-14.3); LYMPHOCYTES # (AUTO) 0.6 K/uL (20.0-40.0); LYMPHOCYTES % (AUTO) 6.9 % (20.5-51.5); MEAN CORPUSCULAR HEMOGLOBIN 29.5 uug (24.7-32.8); MEAN CORPUSCULAR HGB CONC 33 g/dL (32.3-35.6); MEAN CORPUSCULAR VOLUME 90.3 fL (75.5-95.3); MONOCYTES # (AUTO) 0.1 K/uL (2.0-10.0); MONOCYTES % (AUTO) 1.2 % (0.0-11.0); NEUTROPHILS # (AUTO) 7.4 K/uL (1.8-8.9); NEUTROPHILS % (AUTO) 91.9 % (38.5-71.5); PLATELET COUNT (AUTO) 216 K/uL (179-408); RED BLOOD CELL COUNT(AUTO) 4.19 MIL/uL (3.63-4.92)
[2019-05-16] MEDS: PANTOPRAZOLE SODIUM 40 MG TABLET.DR PO SCH (06:31)
[2019-05-16] MEDS: LEVOTHYROXINE SODIUM 25 MCG TABLET PO SCH (06:32)
[2019-05-16 06:37] LABS: CARBON DIOXIDE 34 mmol/L (21-32); CHLORIDE 94 mmol/L (98-107); CREATININE 2.2 mg/dL (0.6-1.3); GLUCOSE 270 mg/dL (74-106); MAGNESIUM 1.9 mg/dL (1.8-2.4); PHOSPHOROUS 4.9 mg/dL (2.5-4.9); POTASSIUM 5.3 mmol/L (3.5-5.1); UREA NITROGEN, BLOOD 56 mg/dL (7-18)
[2019-05-16] MEDS: BLOOD SUGAR DIAGNOSTIC 1 EACH STRIP VI SCH ×4 (06:41→21:37)
[2019-05-16] MEDS: INSULIN REGULAR, HUMAN 300 UNIT/3 ML VIAL SQ PRN ×3 (07:33→15:56)
[2019-05-16] MEDS: FUROSEMIDE 40 MG/4 ML VIAL IV SCH ×2 (08:22→21:21)
[2019-05-16] MEDS: MIRALAX 17 GM POWD.PACK PO SCH (08:23)
[2019-05-16] MEDS: METOPROLOL TARTRATE 25 MG TABLET PO SCH ×2 (09:00→16:00)
[2019-05-16 09:09] LABS: ABG BASE EXCESS 8.4 mmol/L; ABG HCO3 35.3 mmol/L; ABG PCO2 59.7 mmHg (35.0-45.0); ABG PO2 76.5 mmHg (75.0-100.0); ABG SITE RIGHT RADIAL; ABG TOTAL HEMOGLOBIN 13.2 G/dL (12.0-16.0); COHb 1.7 % (0.5-1.5); MetHb 0.1 % (0.0-1.5); VENT MODE Nasal Cannula
[2019-05-16] MEDS: LEVALBUTEROL HCL NEB 0.63 MG/3 ML NEBU NEB PRN ×2 (09:14→19:21)
[2019-05-16] MEDS: IPRATROPIUM BROMIDE 0.5 MG/2.5 ML NEBU NEB PRN ×2 (09:14→19:21)
[2019-05-16] MEDS ORDERED: DEXTROSE 50% 50 ML DISP.SYRIN IV PRN (09:15)
[2019-05-16 12:04] VITALS: BP 103/50
[2019-05-16 12:48] LABS: *BILIRUBIN,URIN NEGATIVE (NEGATIVE); *BLOOD, URINE NEGATIVE (NEGATIVE); *CLARITY,URINE CLEAR (CLEAR); *COLOR,URINE YELLOW (YELLOW); *KETONES,URINE NEGATIVE (NEGATIVE); *UROBILINOGEN,URINE 0.2 E.U./dl (NORMAL); LEUKOCYTE ESTERASE ,URINE NEGATIVE (NEGATIVE); NITRITE, URINE NEGATIVE (NEGATIVE); UGLUCOSE NEGATIVE (NEGATIVE)
[2019-05-16 12:51] LABS: *CREATININE,URINE 40.1 mg/dL (30-125); *URINE TOTAL PROTEIN RANDOM < 6.0 mg/dL (<150/24HR)
[2019-05-16] MEDS: SENNOSIDES/DOCUSATE SODIUM TABLET PO SCH (13:45)
[2019-05-16 15:24] VITALS: BP 112/56
[2019-05-16] MEDS ORDERED: WARFARIN SODIUM 1 MG TABLET PO SCH (17:00)
[2019-05-16 20:03] VITALS: BP 116/57
[2019-05-16] MEDS ORDERED: methylPREDNISolone SOD SUCC 125 MG/2 ML VIAL IV SCH (21:00)
[2019-05-16] MEDS: methylPREDNISolone SOD SUCC 40 MG/ML VIAL IV SCH (21:21)
[2019-05-16] MEDS: INSULIN REGULAR, HUMAN 300 UNITS/3 ML VIAL SQ PRN (21:55)
[2019-05-16] MEDS: ZOLPIDEM 5 MG TABLET PO PRN (22:03)
[2019-05-17] VITALS: BP 110/62
[2019-05-17 04:00] VITALS: BP 154/61
[2019-05-17] MEDS: LEVOTHYROXINE SODIUM 25 MCG TABLET PO SCH (06:07)
[2019-05-17] MEDS: PANTOPRAZOLE SODIUM 40 MG TABLET.DR PO SCH (06:07)
[2019-05-17 06:34] LABS: BASOPHILS % (AUTO) 0.1 % (0.0-2.0); HEMATOCRIT 36.3 % (31.2-41.9); HEMOGLOBIN 11.8 g/dL (10.9-14.3); LYMPHOCYTES # (AUTO) 0.4 K/uL (20.0-40.0); LYMPHOCYTES % (AUTO) 2.9 % (20.5-51.5); MEAN CORPUSCULAR HEMOGLOBIN 29.3 uug (24.7-32.8); MEAN CORPUSCULAR HGB CONC 33 g/dL (32.3-35.6); MONOCYTES # (AUTO) 0.3 K/uL (2.0-10.0); MONOCYTES % (AUTO) 1.7 % (0.0-11.0); NEUTROPHILS # (AUTO) 14.8 K/uL (1.8-8.9); NEUTROPHILS % (AUTO) 95.3 % (38.5-71.5); PLATELET COUNT (AUTO) 224 K/uL (179-408); RED BLOOD CELL COUNT(AUTO) 4.04 MIL/uL (3.63-4.92); WHITE BLOOD COUNT (AUTO) 15.5 K/uL (3.8-11.8)
[2019-05-17] MEDS: BLOOD SUGAR DIAGNOSTIC 1 EACH STRIP VI SCH ×4 (06:39→20:51)
[2019-05-17 06:53] LABS: ALANINE AMINOTRANSFERASE 11 U/L (14-59); ALKALINE PHOSPHATASE 66 U/L (50-136); ASPARTATE AMINOTRANSFERASE 14 U/L (15-37); BILIRUBIN,TOTAL 0.8 mg/dL (0.2-1.0); CARBON DIOXIDE 35 mmol/L (21-32); CHLORIDE 94 mmol/L (98-107); CREATINE KINASE, TOTAL 22 U/L (26-192); CREATININE 2.3 mg/dL (0.6-1.3); GLUCOSE 289 mg/dL (74-106); POTASSIUM 4.8 mmol/L (3.5-5.1); TOTAL PROTEIN, SERUM 7.9 g/dL (6.4-8.2); UREA NITROGEN, BLOOD 74 mg/dL (7-18)
[2019-05-17] MEDS ORDERED: ACETAzolamide SODIUM 500 MG VIAL IV ONE (08:15)
[2019-05-17] MEDS: methylPREDNISolone SOD SUCC 40 MG/ML VIAL IV SCH ×2 (09:13→20:56)
[2019-05-17] MEDS: SENNOSIDES/DOCUSATE SODIUM TABLET PO SCH (09:13)
[2019-05-17] MEDS: FUROSEMIDE 40 MG/4 ML VIAL IV SCH ×2 (09:13→20:55)
[2019-05-17] MEDS: MIRALAX 17 GM POWD.PACK PO SCH (09:14)
[2019-05-17] MEDS: METOPROLOL TARTRATE 25 MG TABLET PO SCH ×2 (09:14→17:00)
[2019-05-17 10:39] VITALS: BP 126/68
[2019-05-17] MEDS: INSULIN REGULAR, HUMAN 300 UNIT/3 ML VIAL SQ PRN ×2 (12:02→17:23)
[2019-05-17 16:39] VITALS: BP 102/48
[2019-05-17] MEDS: LEVALBUTEROL HCL NEB 0.63 MG/3 ML NEBU NEB PRN (19:47)
[2019-05-17] MEDS: IPRATROPIUM BROMIDE 0.5 MG/2.5 ML NEBU NEB PRN (19:47)
[2019-05-17 20:22] VITALS: BP 112/63
[2019-05-17] MEDS: INSULIN REGULAR, HUMAN 300 UNITS/3 ML VIAL SQ PRN (20:55)
[2019-05-17] MEDS: ZOLPIDEM 5 MG TABLET PO PRN (22:30)
[2019-05-18 04:00] VITALS: BP 132/63
[2019-05-18] MEDS: HYDROCODONE/APAP 5-325MG TABLET PO PRN (04:47)
[2019-05-18] MEDS: PANTOPRAZOLE SODIUM 40 MG TABLET.DR PO SCH (06:26)
[2019-05-18] MEDS: LEVOTHYROXINE SODIUM 25 MCG TABLET PO SCH (06:27)
[2019-05-18] MEDS: BLOOD SUGAR DIAGNOSTIC 1 EACH STRIP VI SCH ×3 (06:32→17:07)
[2019-05-18 06:53] LABS: CARBON DIOXIDE 35 mmol/L (21-32); CHLORIDE 94 mmol/L (98-107); CREATININE 2.3 mg/dL (0.6-1.3); GLUCOSE 237 mg/dL (74-106); PHOSPHOROUS 5.4 mg/dL (2.5-4.9); POTASSIUM 4.2 mmol/L (3.5-5.1)
[2019-05-18 06:57] LABS: UREA NITROGEN, BLOOD 89 mg/dL (7-18)
[2019-05-18 07:48] LABS: HEMATOCRIT 38.3 % (31.2-41.9); HEMOGLOBIN 12.2 g/dL (10.9-14.3); LYMPHOCYTES # (AUTO) 0.5 K/uL (20.0-40.0); LYMPHOCYTES % (AUTO) 3.3 % (20.5-51.5); MEAN CORPUSCULAR HEMOGLOBIN 28.8 uug (24.7-32.8); MEAN CORPUSCULAR HGB CONC 32 g/dL (32.3-35.6); MEAN CORPUSCULAR VOLUME 90.6 fL (75.5-95.3); MONOCYTES # (AUTO) 0.4 K/uL (2.0-10.0); MONOCYTES % (AUTO) 2.7 % (0.0-11.0); NEUTROPHILS # (AUTO) 13.9 K/uL (1.8-8.9); PLATELET COUNT (AUTO) 226 K/uL (179-408); RED BLOOD CELL COUNT(AUTO) 4.23 MIL/uL (3.63-4.92); WHITE BLOOD COUNT (AUTO) 14.8 K/uL (3.8-11.8)
[2019-05-18 08:06] LABS: A/G RATIO 0.9 (0.7-1.7); ALBUMIN 3.4 g/dL (2.9-4.4); ALPHA-1-GLOBULIN 0.3 g/dL (0.0-0.4); ALPHA-2-GLOBULIN 0.5 g/dL (0.4-1.0); GAMMA GLOBULIN 2.1 g/dL (0.4-1.8); GLOBULIN, TOTAL 3.9 g/dL (2.2-3.9); M-SPIKE Not Observed g/dL (Not Observed)
[2019-05-18] MEDS ORDERED: ALBUTEROL SULFATE 1.25 MG/3 ML NEBU NEB PRN (08:30)
[2019-05-18] MEDS ORDERED: BUMETANIDE 1 MG TABLET PO SCH (09:00)
[2019-05-18] MEDS: METOPROLOL TARTRATE 25 MG TABLET PO SCH ×2 (09:00→17:42)
[2019-05-18] MEDS: BUMETANIDE 1 MG TABLET PO SCH ×2 (09:56→17:37)
[2019-05-18] MEDS: methylPREDNISolone SOD SUCC 40 MG/ML VIAL IV SCH (09:56)
[2019-05-18] MEDS: SENNOSIDES/DOCUSATE SODIUM TABLET PO SCH (09:58)
[2019-05-18] MEDS: MIRALAX 17 GM POWD.PACK PO SCH (09:58)
[2019-05-18] MEDS: INSULIN REGULAR, HUMAN 300 UNIT/3 ML VIAL SQ PRN ×2 (09:59→12:29)
[2019-05-18 11:40] VITALS: BP 104/54
[2019-05-18] MEDS ORDERED: BUME1TAB8 PO (14:06)
[2019-05-18] MEDS ORDERED: INSU100V28 SQ ×2 (14:06)
[2019-05-18] MEDS ORDERED: PRED20TA PO (14:06)
[2019-05-18] MEDS ORDERED: METH4TAB3 PO (14:06)
[2019-05-18 16:00] VITALS: BP 111/66
[2019-05-18] MEDS ORDERED: WARFARIN SODIUM 1 MG TABLET PO SCH ×2 (17:00)
[2019-05-18 17:42] VITALS: BP 147/76
[2019-05-19] MEDS ORDERED: predniSONE 20 MG TABLET PO SCH (08:00)
[2019-05-19] MEDS ORDERED: WARFARIN SODIUM 1 MG TABLET PO SCH (17:00)
== END 2019-05-18 18:30 | disposition home health service (06) | DRG 291 ==
LOC: ER 14:35 → CCU 17:57 → TELE3 05-14 08:51
PROVIDERS: ADMIT Nurse Practitioner Acute Care; ATTEND Nurse Practitioner Acute Care
DX: I13.0 Hypertensive heart and chronic kidney disease with heart failure and stage 1 through stage 4 chronic kidney disease, or unspecified chronic kidney disease (principal); I50.33 Acute on chronic diastolic (congestive) heart failure; J96.21 Acute and chronic respiratory failure with hypoxia; N17.0 Acute kidney failure with tubular necrosis; J96.22 Acute and chronic respiratory failure with hypercapnia; E44.0 Moderate protein-calorie malnutrition; D68.59 Other primary thrombophilia; I48.92 Unspecified atrial flutter; E87.3 Alkalosis; E11.22 Type 2 diabetes mellitus with diabetic chronic kidney disease; Z79.4 Long term (current) use of insulin; Z79.01 Long term (current) use of anticoagulants; I95.2 Hypotension due to drugs; T46.3X5A Adverse effect of coronary vasodilators, initial encounter; Y92.538 Other ambulatory health services establishments as the place of occurrence of the external cause; E11.65 Type 2 diabetes mellitus with hyperglycemia; E78.5 Hyperlipidemia, unspecified; E03.9 Hypothyroidism, unspecified; E83.42 Hypomagnesemia; Z99.81 Dependence on supplemental oxygen; Z95.2 Presence of prosthetic heart valve; Z95.1 Presence of aortocoronary bypass graft; Z79.899 Other long term (current) drug therapy; Z87.440 Personal history of urinary (tract) infections; Z87.01 Personal history of pneumonia (recurrent); N18.3 Chronic kidney disease, stage 3 (moderate); K21.9 Gastro-esophageal reflux disease without esophagitis; J44.9 Chronic obstructive pulmonary disease, unspecified; I70.0 Atherosclerosis of aorta; I48.2 Chronic atrial fibrillation; I05.0 Rheumatic mitral stenosis; E87.5 Hyperkalemia; I27.20 Pulmonary hypertension, unspecified; J84.10 Pulmonary fibrosis, unspecified; Z90.710 Acquired absence of both cervix and uterus; I77.810 Thoracic aortic ectasia
CPT/HCPCS: 36415; 36600; 70030-TC; 71045; 83605; 83735; 83970; 84100; 84155; 84156; 84165; 84300; 85025; 85610; 85730; 87040; 93005; 93307; 94640; 97110; 97116; 97530; A4663; G0378; J1120; J1940; J2920; J2930; J3475; J3490; J3590; J7040; J7614

== ENCOUNTER 2019-05-23 10:32 | Inpatient (IN) | payer MEDICARE, OTHER ==
[~2019-05-23] VITALS: Ht 165.1 cm; Wt 51.3 kg
[~2019-05-23 10:32] MED LIST changes: +ALBU18HF2 INH; -ASPI81TA31 PO; -BUME1TAB34 PO; +BUME1TAB8 PO; -FURO20TA4 PO; +INSU100V28 SQ; +INSULIN; -MAGN400O6 PO; +METH4TAB3 PO; -PANT40TA2 PO; -WARF1TAB47 PO; +WARF3TAB29 PO
[2019-05-23] MEDS ORDERED: Z GUARD REMEDY PASTE 57 GM TUBE TOP PRN (11:15)
[2019-05-23] MEDS ORDERED: LINA5TAB PO (11:42)
[2019-05-23] MEDS ORDERED: PRED20TA PO (11:42)
[2019-05-23] MEDS ORDERED: WARF3TAB59 PO (11:54)
[2019-05-23 11:56] VITALS: BP 99/58
--- NOTE | 2019-05-23 12:00 | NUR ---
Admitted a 84 years old female patient at 1032 from home. BIB family member via W/C. Pt. is under the care of Dr. Parker and Brennen Iyer DNP who came with the following dx: Acute on Chronic diastolic CHF, acute respiratory failure. Patient has no known allergies. Patient is full code per pt. and family preference. Patient is A/Ox4 verbally responsive and able to make her needs known. No SOB or acute distress, on 2.5 LPM via NC and tolerating well with SpO2 of 94%. Denies pain during assessment. All pt. needs attended and met promptly. Lungs sounds clear to auscultation. Initial skin assessment completed, noted with slight sacral redness. MRSA swab completed per unit protocol. Pt. on a Cardiac/CCHO diet. Dr. Parker made aware of pt. admission. Notified Brennen Iyer DNP of admission and requested med recon. Kept pt. clean and dry. Safety measures in place. Call light and all frequently used items within pt. reach. Emphasize use of call light system, pt. verbalized clear understanding. Will endorse to oncoming shift accordingly.
[2019-05-23] MEDS ORDERED: methylPREDNISolone 1 PACK TAB.DS.PK [4MG TAB] PO SCH (14:00)
[2019-05-23] MEDS ORDERED: DEXTROSE 50% 50 ML DISP.SYRIN IV PRN (14:00)
[2019-05-23] MEDS ORDERED: ACETAMINOPHEN 325 MG TABLET PO PRN (14:00)
[2019-05-23] MEDS ORDERED: ALBUTEROL SULFATE 2.5 MG/3 ML NEBU NEB PRN (14:30)
[2019-05-23] MEDS ORDERED: ALBUTEROL SULFATE 2.5 MG/ 0.5 ML NEBU NEB PRN (14:30)
[2019-05-23] MEDS ORDERED: predniSONE 5 MG TABLET PO SCH (15:17)
[2019-05-23] MEDS ORDERED: BISACODYL 10 MG SUPP.RECT RC PRN (15:45)
[2019-05-23 15:51] VITALS: BP 125/67
[2019-05-23] MEDS: BLOOD SUGAR DIAGNOSTIC 1 EACH STRIP VI SCH ×2 (17:04→21:19)
[2019-05-23] MEDS: BUMETANIDE 1 MG TABLET PO SCH (17:05)
[2019-05-23] MEDS: METOPROLOL TARTRATE 25 MG TABLET PO SCH (17:08)
[2019-05-23] MEDS: INSULIN REGULAR, HUMAN 300 UNIT/3 ML VIAL SQ PRN ×2 (17:13→21:22)
--- NOTE | 2019-05-23 18:33 | NUR ---
End of shift note: No significant change during this shift. Received all due medications as ordered. No s/sx of bleeding, on Warfarin. Stat INR: 2.33. All needs attended and met promptly. Safety measures in placed. Bed in low position, brake on, side rails up x2 as an enabler. Call light and all frequently used items within pt. reach. Will endorse to next shift accordingly.
[2019-05-23] MEDS: WARFARIN SODIUM 1 MG TABLET PO SCH (18:46)
[2019-05-23 19:54] VITALS: BP 115/60
--- NOTE | 2019-05-23 20:39 | NUR ---
received in bed upon initial rounds. aaox4 no acute distress noted. admitted for on chronic respiratory failure. On O2 @ 2.5 L via nasal cannula pulse ox 96%. needs attended. ambulates to the BR with walker. voiding freely. denies any pain nor any discomfort. will monitor patient. fall precautions maintained. siderails up for safety.
[2019-05-23] MEDS: ZOLPIDEM 5 MG TABLET PO PRN (21:16)
[2019-05-24 05:11] VITALS: BP 96/55
[2019-05-24] MEDS: LEVOTHYROXINE SODIUM 25 MCG TABLET PO SCH (06:26)
[2019-05-24] MEDS: BLOOD SUGAR DIAGNOSTIC 1 EACH STRIP VI SCH ×4 (06:30→20:51)
--- NOTE | 2019-05-24 06:50 | NUR ---
quiet night. voiding well. request for a sleeping pill, given as ordered. slept well. no acute distress noted.no complaints presented during shift. will monitor.
[2019-05-24 07:24] LABS: BASOPHILS # (AUTO) 0.1 K/uL (0.0-8.0); BASOPHILS % (AUTO) 0.4 % (0.0-2.0); EOSINOPHILS # (AUTO) 0.1 K/uL (0.0-0.7); EOSINOPHILS % (AUTO) 0.7 % (0.0-7.0); HEMATOCRIT 42.8 % (31.2-41.9); HEMOGLOBIN 13.7 g/dL (10.9-14.3); LYMPHOCYTES # (AUTO) 2.3 K/uL (20.0-40.0); LYMPHOCYTES % (AUTO) 15.1 % (20.5-51.5); MEAN CORPUSCULAR HEMOGLOBIN 28.5 uug (24.7-32.8); MEAN CORPUSCULAR HGB CONC 32 g/dL (32.3-35.6); MONOCYTES # (AUTO) 1.2 K/uL (2.0-10.0); MONOCYTES % (AUTO) 8.2 % (0.0-11.0); NEUTROPHILS # (AUTO) 11.5 K/uL (1.8-8.9); NEUTROPHILS % (AUTO) 75.6 % (38.5-71.5); PLATELET COUNT (AUTO) 255 K/uL (179-408); RED BLOOD CELL COUNT(AUTO) 4.81 MIL/uL (3.63-4.92); WHITE BLOOD COUNT (AUTO) 15.2 K/uL (3.8-11.8)
[2019-05-24 07:29] LABS: ALANINE AMINOTRANSFERASE 8 U/L (14-59); ALKALINE PHOSPHATASE 62 U/L (50-136); ASPARTATE AMINOTRANSFERASE 18 U/L (15-37); BILIRUBIN,TOTAL 0.9 mg/dL (0.2-1.0); CARBON DIOXIDE 34 mmol/L (21-32); CHLORIDE 99 mmol/L (98-107); CREATINE KINASE, TOTAL 15 U/L (26-192); CREATININE 2.2 mg/dL (0.6-1.3); GLUCOSE 140 mg/dL (74-106); MAGNESIUM 2.6 mg/dL (1.8-2.4); PHOSPHOROUS 4.6 mg/dL (2.5-4.9); POTASSIUM 3.7 mmol/L (3.5-5.1); TOTAL PROTEIN, SERUM 8.2 g/dL (6.4-8.2)
[2019-05-24 07:32] LABS: UREA NITROGEN, BLOOD 136 mg/dL (7-18)
[2019-05-24] MEDS: METOPROLOL TARTRATE 25 MG TABLET PO SCH ×2 (08:14→16:43)
[2019-05-24] MEDS: BUMETANIDE 1 MG TABLET PO SCH (08:14)
[2019-05-24] MEDS: predniSONE 5 MG TABLET PO SCH (08:14)
[2019-05-24] MEDS: INSULIN REGULAR, HUMAN 300 UNIT/3 ML VIAL SQ PRN ×4 (08:18→20:54)
[2019-05-24 08:45] VITALS: BP 143/85
[2019-05-24] MEDS ORDERED: Medication Not On Formulary EA (Warfarin Sodium (Coumadin) 1 TAB) PO SCH (09:00)
--- NOTE | 2019-05-24 09:43 | NUR ---
Received pt. in bed in no distress. A/OX4 verbally responsive and able to make her needs known. No new skin condition. All needs attended and met promptly. All due medications given as ordered and tolerated well. On 2.5LPM via NC with SpO2 of 97%. No s/sx of bleeding, on warfarin. Safety measures in place. Call light and all frequently used items within pt. reach. Will continue to monitor accordingly.
--- NOTE | 2019-05-24 10:56 | NUR ---
DNP made aware of CH BUN: 136. DNP came and seen pt. with new orders.
[2019-05-24] MEDS: FAMOTIDINE 20 MG TABLET PO SCH ×2 (11:40→20:48)
[2019-05-24] MEDS: DOCUSATE SODIUM 100 MG CAPSULE PO SCH ×2 (11:40→20:48)
[2019-05-24 16:00] VITALS: BP 113/60
[2019-05-24] MEDS: WARFARIN SODIUM 1 MG TABLET PO SCH (16:46)
--- NOTE | 2019-05-24 18:13 | NUR ---
End of shift note: No significant change during this shift. All needs attended and met promptly. Safety measures in placed. Bed in low position, brake on, side rails up x2 as an enabler. Call light and all frequently used items within pt. reach. Will endorse to next shift accordingly.
--- NOTE | 2019-05-24 18:16 | NUR ---
Changed diet texture to fine chopped per pt. request. amenable with order. Orders noted and carried out. Addendum: 05/24/19 at 1819 by EMILEE COLLINS RN Charting Error: Incorrect pt.
[2019-05-24 20:47] VITALS: BP 137/76
[2019-05-24] MEDS: ZOLPIDEM 5 MG TABLET PO PRN (22:02)
--- NOTE | 2019-05-25 04:08 | NUR ---
AAOx4 OOB to BR with walker. Voiding well. No acute distress noted. VSS. Needs attended. No complaints presented during shift.Will monitor patient. 2100 BS 156, 2units humalog insulin given as coverage. Tolerated po meds well. O2 @ 2.5L via nasal cannula, denies any signs of respiratory distress nor any SOB. Kept comfortable.
[2019-05-25 05:59] VITALS: BP 124/68
[2019-05-25] MEDS: LEVOTHYROXINE SODIUM 25 MCG TABLET PO SCH (06:24)
[2019-05-25] MEDS: BLOOD SUGAR DIAGNOSTIC 1 EACH STRIP VI SCH ×4 (06:30→21:05)
[2019-05-25 06:46] LABS: CARBON DIOXIDE 34 mmol/L (21-32); CHLORIDE 99 mmol/L (98-107); CREATININE 2.1 mg/dL (0.6-1.3); GLUCOSE 192 mg/dL (74-106)
[2019-05-25 06:52] LABS: UREA NITROGEN, BLOOD 122 mg/dL (7-18)
[2019-05-25 08:15] VITALS: BP 120/54
[2019-05-25] MEDS: DOCUSATE SODIUM 100 MG CAPSULE PO SCH ×2 (08:55→21:00)
[2019-05-25] MEDS: FAMOTIDINE 20 MG TABLET PO SCH ×2 (08:55→21:05)
[2019-05-25] MEDS: METOPROLOL TARTRATE 25 MG TABLET PO SCH ×2 (08:56→16:57)
[2019-05-25] MEDS: predniSONE 5 MG TABLET PO SCH (08:57)
[2019-05-25] MEDS ORDERED: Medication Not On Formulary EA (Warfarin Sodium 3 MG) PO SCH (09:00)
[2019-05-25] MEDS ORDERED: WARFARIN SODIUM 3.5 MG PO SCH (09:00)
[2019-05-25 09:10] LABS: A/G RATIO 0.9 (0.7-1.7); ALBUMIN 3.6 g/dL (2.9-4.4); ALPHA-1-GLOBULIN 0.2 g/dL (0.0-0.4); ALPHA-2-GLOBULIN 0.6 g/dL (0.4-1.0); BETA GLOBULIN 1.1 g/dL (0.7-1.3); M-SPIKE Not Observed g/dL (Not Observed)
--- NOTE | 2019-05-25 09:31 | NUR ---
Received patient in stable condition. Refuse insulin sliding scale this AM. no signs of hypo/hyperglycemia. not in distress. BUN- 122 critical value relayed to ROCKY Iyer. ordered refer to webmaster. no new order. will continue monitor
[2019-05-25] MEDS: INSULIN REGULAR, HUMAN 300 UNIT/3 ML VIAL SQ PRN ×3 (11:29→21:12)
--- NOTE | 2019-05-25 12:11 | NUR ---
WOUND CARE CONSULT: PT PRESENTS WITH INTACT SKIN. PT IS INDEPENDENT WITH BED MOBILITY AND IS CONTINENT. WILL SEE PRN.
--- NOTE | 2019-05-25 12:48 | NUR ---
Received patient awake in stable condition. Seen and examined by wound nurse for sacrum redness. No open wound, encourage z guard if needed. no new order. will continue monitor
[2019-05-25] MEDS: WARFARIN SODIUM 1 MG TABLET PO SCH (16:56)
[2019-05-25 18:16] VITALS: BP 119/61
[2019-05-25 20:32] VITALS: BP 132/70
[2019-05-25] MEDS: ZOLPIDEM 5 MG TABLET PO PRN (21:06)
--- NOTE | 2019-05-26 00:39 | NUR ---
Received pt ambulating in the hallway using walker. No acute distress noted. Denies/ pain discomfort. Due meds given as ordered. Safety measures maintained. Call light and personal belongings within reach. Will continue to monitor.
[2019-05-26] MEDS: LEVOTHYROXINE SODIUM 25 MCG TABLET PO SCH (06:27)
[2019-05-26] MEDS: BLOOD SUGAR DIAGNOSTIC 1 EACH STRIP VI SCH ×4 (06:39→20:24)
[2019-05-26 06:40] VITALS: BP 128/65
--- NOTE | 2019-05-26 08:43 | NUR ---
Patient noted sitting up on the side of the bed, took all AM medications, no complaints of pain, not signs of distress noted, call light in reach, all needs met at this time
[2019-05-26 08:45] VITALS: BP 136/62
[2019-05-26] MEDS: METOPROLOL TARTRATE 25 MG TABLET PO SCH ×2 (08:50→17:29)
[2019-05-26] MEDS: DOCUSATE SODIUM 100 MG CAPSULE PO SCH ×2 (08:50→20:23)
[2019-05-26] MEDS: FAMOTIDINE 20 MG TABLET PO SCH ×2 (08:50→20:24)
[2019-05-26] MEDS: predniSONE 5 MG TABLET PO SCH (08:50)
--- NOTE | 2019-05-26 08:56 | NUR ---
INTERDISCIPLINARY TEAM CONFERENCE
[2019-05-26] MEDS: INSULIN REGULAR, HUMAN 300 UNIT/3 ML VIAL SQ PRN ×2 (12:35→20:29)
--- NOTE | 2019-05-26 14:35 | NUR ---
INDIVIDUALIZED OVERALL PLAN OF CARE
[2019-05-26 16:43] VITALS: BP 111/61
[2019-05-26] MEDS: WARFARIN SODIUM 1 MG TABLET PO SCH (17:30)
[2019-05-26] MEDS ORDERED: GABAPENTIN 100 MG CAPSULE ONE (20:42)
[2019-05-26] MEDS: GABAPENTIN 100 MG CAPSULE PO SCH (20:53)
[2019-05-26 21:38] VITALS: BP 109/55
--- NOTE | 2019-05-26 21:49 | NUR ---
Received pt sitting on the chair. Farsi speaking, able to make needs known. No acute distress noted. Denies pain/ discomfort. Due meds and insulin coverage given as ordered. Pt refused Colace stating that her stomach hurts because of that. Risks and benefits explained. Safety measures maintained. Call light and personal belongings within reach. Will continue to monitor.
[2019-05-27 05:36] VITALS: BP 147/62
[2019-05-27] MEDS: LEVOTHYROXINE SODIUM 25 MCG TABLET PO SCH (06:40)
[2019-05-27] MEDS: BLOOD SUGAR DIAGNOSTIC 1 EACH STRIP VI SCH ×4 (06:44→21:41)
[2019-05-27 07:59] LABS: BASOPHILS # (AUTO) 0.1 K/uL (0.0-8.0); BASOPHILS % (AUTO) 0.4 % (0.0-2.0); EOSINOPHILS # (AUTO) 0.2 K/uL (0.0-0.7); EOSINOPHILS % (AUTO) 1.8 % (0.0-7.0); HEMATOCRIT 42.2 % (31.2-41.9); HEMOGLOBIN 13.8 g/dL (10.9-14.3); LYMPHOCYTES # (AUTO) 2.4 K/uL (20.0-40.0); LYMPHOCYTES % (AUTO) 17.8 % (20.5-51.5); MEAN CORPUSCULAR HEMOGLOBIN 28.8 uug (24.7-32.8); MEAN CORPUSCULAR HGB CONC 33 g/dL (32.3-35.6); MEAN CORPUSCULAR VOLUME 87.6 fL (75.5-95.3); MONOCYTES % (AUTO) 7.6 % (0.0-11.0); NEUTROPHILS # (AUTO) 9.6 K/uL (1.8-8.9); NEUTROPHILS % (AUTO) 72.4 % (38.5-71.5); PLATELET COUNT (AUTO) 252 K/uL (179-408); RED BLOOD CELL COUNT(AUTO) 4.82 MIL/uL (3.63-4.92); WHITE BLOOD COUNT (AUTO) 13.2 K/uL (3.8-11.8)
[2019-05-27 08:12] LABS: CARBON DIOXIDE 35 mmol/L (21-32); CHLORIDE 103 mmol/L (98-107); CREATININE 1.8 mg/dL (0.6-1.3); GLUCOSE 127 mg/dL (74-106); MAGNESIUM 2.3 mg/dL (1.8-2.4); PHOSPHOROUS 3.3 mg/dL (2.5-4.9); POTASSIUM 4.5 mmol/L (3.5-5.1)
[2019-05-27 08:16] LABS: UREA NITROGEN, BLOOD 88 mg/dL (7-18)
[2019-05-27] MEDS: METOPROLOL TARTRATE 25 MG TABLET PO SCH ×2 (09:00→16:44)
[2019-05-27] MEDS: FAMOTIDINE 20 MG TABLET PO SCH ×2 (09:20→21:31)
[2019-05-27] MEDS: predniSONE 5 MG TABLET PO SCH (09:20)
[2019-05-27] MEDS: BUMETANIDE 1 MG TABLET PO SCH ×2 (09:20→16:44)
[2019-05-27] MEDS: DOCUSATE SODIUM 100 MG CAPSULE PO SCH ×2 (09:20→21:31)
[2019-05-27 09:50] VITALS: BP 109/54
[2019-05-27] MEDS: INSULIN REGULAR, HUMAN 300 UNIT/3 ML VIAL SQ PRN ×3 (12:08→21:45)
[2019-05-27 16:00] VITALS: BP 122/54
[2019-05-27] MEDS: WARFARIN SODIUM 1 MG TABLET PO SCH (16:48)
--- NOTE | 2019-05-27 19:34 | NUR ---
pt in stable condition, denies any pain, no immediate needs, will continue to monitor.
[2019-05-27 20:23] VITALS: BP 106/66
[2019-05-27] MEDS: GABAPENTIN 100 MG CAPSULE PO SCH (21:31)
[2019-05-28 04:30] VITALS: BP 139/76
--- NOTE | 2019-05-28 05:36 | NUR ---
No acute events overnight, pt in stable condition, bed alarm is on, bed is in the lowest position
[2019-05-28] MEDS: LEVOTHYROXINE SODIUM 25 MCG TABLET PO SCH (06:55)
[2019-05-28] MEDS: BLOOD SUGAR DIAGNOSTIC 1 EACH STRIP VI SCH ×4 (06:59→20:24)
[2019-05-28] MEDS: INSULIN REGULAR, HUMAN 300 UNIT/3 ML VIAL SQ PRN ×4 (08:00→20:26)
[2019-05-28] MEDS: DOCUSATE SODIUM 100 MG CAPSULE PO SCH ×2 (08:02→20:16)
[2019-05-28] MEDS: FAMOTIDINE 20 MG TABLET PO SCH ×2 (08:02→20:16)
[2019-05-28] MEDS: BUMETANIDE 1 MG TABLET PO SCH ×2 (08:02→16:27)
[2019-05-28] MEDS: METOPROLOL TARTRATE 25 MG TABLET PO SCH ×2 (08:04→16:26)
[2019-05-28] MEDS: predniSONE 5 MG TABLET PO SCH (08:04)
[2019-05-28 08:27] VITALS: BP 110/57
[2019-05-28] MEDS ORDERED: predniSONE 10 MG TABLET PO SCH (09:00)
--- NOTE | 2019-05-28 11:06 | NUR ---
Received patient awake in stable condition. Continue therapy for ambulation and ADL ability. BUN- 88 critical high. ROCKY Iyer aware. no complaint of pain/discomfort noted. not in distress. will continue monitor
[2019-05-28] MEDS ORDERED: LACTULOSE 20 G/30 ML LIQUID UDC PO PRN (11:30)
[2019-05-28 16:48] VITALS: BP 104/64
[2019-05-28] MEDS: WARFARIN SODIUM 1 MG TABLET PO SCH (17:13)
--- NOTE | 2019-05-28 19:35 | NUR ---
Patient received in bed, AAO x4. Able to make needs known. No acute distress or SOB noted. Farsi speaking. On O 2 L via NC. No Complain of pain at this time. Physical assessment done. Safety measures observed. Fall precaution maintained. Bed in low position, side rails up x2 for safety, brake and alarm on. call light and personal belongings within reach. Continue to monitor.
[2019-05-28] MEDS: GABAPENTIN 100 MG CAPSULE PO SCH (20:19)
[2019-05-28 21:14] VITALS: BP 117/61
--- NOTE | 2019-05-28 21:25 | NUR ---
Patient refused to take Gabapentin 100 mg at 2100, stated "It makes me drowsy all the day and when I have it at night, I cannot wake up for bathroom". Risks and benefits explained and patient demonstrated understanding, still refused. Continue to monitor.
[2019-05-29 04:50] VITALS: BP 93/53
--- NOTE | 2019-05-29 05:28 | NUR ---
End of the shift note Patient was stable throughout the shift and has a good sleep last night. No acute distress or SOB noted. On room air. No Complain. All due medications administered and well tolerated. Accucheck @2100 was 212 with 4 units insulin coverage based on sliding scale. Physical assessment done. Safety measures observed. Fall precaution maintained. All needs attended promptly. Bed in low position, side rails up x2 for safety, brake and alarm on. Call light and personal belongings within reach. Continue to monitor and will endorse to the day shift nurse accordingly.
[2019-05-29] MEDS: LEVOTHYROXINE SODIUM 25 MCG TABLET PO SCH (06:47)
[2019-05-29] MEDS: BLOOD SUGAR DIAGNOSTIC 1 EACH STRIP VI SCH ×4 (06:51→20:58)
[2019-05-29 07:41] VITALS: BP 117/63
[2019-05-29] MEDS: INSULIN REGULAR, HUMAN 300 UNIT/3 ML VIAL SQ PRN ×4 (08:05→20:57)
[2019-05-29] MEDS: FAMOTIDINE 20 MG TABLET PO SCH ×2 (08:06→20:51)
[2019-05-29] MEDS: BUMETANIDE 1 MG TABLET PO SCH ×2 (08:06→16:51)
[2019-05-29] MEDS: DOCUSATE SODIUM 100 MG CAPSULE PO SCH ×2 (08:06→20:51)
[2019-05-29] MEDS: METOPROLOL TARTRATE 25 MG TABLET PO SCH ×2 (08:08→16:52)
[2019-05-29] MEDS: predniSONE 10 MG TABLET PO SCH (08:08)
[2019-05-29 16:29] VITALS: BP 118/64
[2019-05-29] MEDS: WARFARIN SODIUM 1 MG TABLET PO SCH (16:55)
--- NOTE | 2019-05-29 18:15 | NUR ---
Patient continue blood sugar monitoring with sliding scale insulin. tolerated well. Continue therapy for unsteady gait and ambulation. Cooperative during therapy. Continue pain management if needed. not in distress. will continue monitor
[2019-05-29 19:35] VITALS: BP 118/61
--- NOTE | 2019-05-29 19:35 | NUR ---
Patient received in bed, AAO x4. Able to make needs known. No acute distress or SOB noted. Farsi speaking. On O 2 L via NC. No Complain of pain at this time. A friend was at the bedside. Physical assessment done. Safety measures observed. Fall precaution maintained. Bed in low position, side rails up x2 for safety, brake and alarm on. call light and personal belongings within reach. Continue to monitor.
[2019-05-29] MEDS: GABAPENTIN 100 MG CAPSULE PO SCH (20:58)
--- NOTE | 2019-05-29 21:17 | NUR ---
Patient refused to take Gabapentin 100 mg at 2100, stated. Risks and benefits explained and patient demonstrated understanding, still refused. Continue to monitor.
--- NOTE | 2019-05-30 05:18 | NUR ---
End of the shift note Patient was stable throughout the shift and has a good sleep last night. No acute distress or SOB noted. On room air. No Complain of pain. All due medications administered and well tolerated. Accucheck @2100 was 173 with 3 units insulin coverage based on sliding scale. Physical assessment done. Pictures taken and placed in the chart. Safety measures observed. Fall precaution maintained. All needs attended promptly. Bed in low position, side rails up x2 for safety, brake and alarm on. Call light and personal belongings within reach. Continue to monitor and will endorse to the day shift nurse accordingly.
[2019-05-30 05:33] VITALS: BP 106/57
[2019-05-30] MEDS: LEVOTHYROXINE SODIUM 25 MCG TABLET PO SCH (06:08)
[2019-05-30] MEDS: BLOOD SUGAR DIAGNOSTIC 1 EACH STRIP VI SCH ×4 (07:32→20:38)
[2019-05-30 07:51] VITALS: BP 119/62
[2019-05-30] MEDS: DOCUSATE SODIUM 100 MG CAPSULE PO SCH ×2 (08:43→20:35)
[2019-05-30] MEDS: FAMOTIDINE 20 MG TABLET PO SCH ×2 (08:43→20:35)
[2019-05-30] MEDS: BUMETANIDE 1 MG TABLET PO SCH ×2 (08:43→17:21)
[2019-05-30] MEDS: METOPROLOL TARTRATE 25 MG TABLET PO SCH ×2 (08:44→17:22)
[2019-05-30] MEDS: predniSONE 10 MG TABLET PO SCH (08:44)
[2019-05-30] MEDS: INSULIN REGULAR, HUMAN 300 UNIT/3 ML VIAL SQ PRN ×4 (08:51→20:42)
[2019-05-30 16:25] VITALS: BP 117/61
[2019-05-30] MEDS: WARFARIN SODIUM 1 MG TABLET PO SCH (17:25)
--- NOTE | 2019-05-30 19:10 | NUR ---
Awake, in bed, denies any pain/discomforts at this time. Safety measure and fall precaution maintained. Continue care as planned.
[2019-05-30 20:06] VITALS: BP 118/64
[2019-05-30] MEDS: GABAPENTIN 100 MG CAPSULE PO SCH (20:35)
[2019-05-31 04:56] VITALS: BP 102/64
[2019-05-31] MEDS: LEVOTHYROXINE SODIUM 25 MCG TABLET PO SCH (06:30)
[2019-05-31] MEDS: BLOOD SUGAR DIAGNOSTIC 1 EACH STRIP VI SCH ×4 (06:37→20:45)
[2019-05-31 06:42] LABS: BASOPHILS % (AUTO) 0.3 % (0.0-2.0); EOSINOPHILS # (AUTO) 0.3 K/uL (0.0-0.7); HEMATOCRIT 39.3 % (31.2-41.9); HEMOGLOBIN 12.8 g/dL (10.9-14.3); LYMPHOCYTES # (AUTO) 2.4 K/uL (20.0-40.0); LYMPHOCYTES % (AUTO) 14.5 % (20.5-51.5); MEAN CORPUSCULAR HEMOGLOBIN 29.1 uug (24.7-32.8); MEAN CORPUSCULAR HGB CONC 33 g/dL (32.3-35.6); MONOCYTES # (AUTO) 0.9 K/uL (2.0-10.0); MONOCYTES % (AUTO) 5.7 % (0.0-11.0); NEUTROPHILS # (AUTO) 12.6 K/uL (1.8-8.9); NEUTROPHILS % (AUTO) 77.5 % (38.5-71.5); PLATELET COUNT (AUTO) 211 K/uL (179-408); RED BLOOD CELL COUNT(AUTO) 4.41 MIL/uL (3.63-4.92); WHITE BLOOD COUNT (AUTO) 16.2 K/uL (3.8-11.8)
[2019-05-31 07:21] LABS: ALANINE AMINOTRANSFERASE 10 U/L (14-59); ALKALINE PHOSPHATASE 59 U/L (50-136); ASPARTATE AMINOTRANSFERASE 21 U/L (15-37); BILIRUBIN,TOTAL 0.6 mg/dL (0.2-1.0); CARBON DIOXIDE 35 mmol/L (21-32); CHLORIDE 98 mmol/L (98-107); CREATININE 2.3 mg/dL (0.6-1.3); GLUCOSE 179 mg/dL (74-106); MAGNESIUM 2.3 mg/dL (1.8-2.4); PHOSPHOROUS 4.4 mg/dL (2.5-4.9); POTASSIUM 4.7 mmol/L (3.5-5.1); TOTAL PROTEIN, SERUM 7.2 g/dL (6.4-8.2)
[2019-05-31 07:26] LABS: UREA NITROGEN, BLOOD 97 mg/dL (7-18)
[2019-05-31] MEDS: INSULIN REGULAR, HUMAN 300 UNIT/3 ML VIAL SQ PRN ×4 (08:12→20:49)
[2019-05-31] MEDS: FAMOTIDINE 20 MG TABLET PO SCH ×2 (08:14→20:42)
[2019-05-31] MEDS: DOCUSATE SODIUM 100 MG CAPSULE PO SCH ×2 (08:14→20:41)
[2019-05-31] MEDS: METOPROLOL TARTRATE 25 MG TABLET PO SCH ×2 (08:14→17:05)
[2019-05-31] MEDS: predniSONE 10 MG TABLET PO SCH (08:14)
[2019-05-31] MEDS: BUMETANIDE 1 MG TABLET PO SCH ×2 (08:14→17:03)
--- NOTE | 2019-05-31 11:22 | NUR ---
Received patient awake in bed. Continue blood sugar monitoring with sliding insulin scale. no signs of hypo/hyperglycemia. not in distress. Continue therapy for unsteady gait and ADL ability. will continue monitor.
--- NOTE | 2019-05-31 11:52 | NUR ---
Patient seen and examined by MD Gibbs and MD Llanos, aware of BUN 97 and WBC 16.2 high. Patient still on prednisone 10mg. not in distress. Continue oxygen via nasal cannula PRN. will continue monitor
[2019-05-31 16:45] VITALS: BP 119/65
[2019-05-31] MEDS: WARFARIN SODIUM 1 MG TABLET PO SCH (17:08)
--- NOTE | 2019-05-31 17:37 | NUR ---
Patient INR 2.26 reported to MD Gibbs with order continue coumadin 3mg this PM. no visible bleeding noted. no complaint of pain/discomfort. will continue monitor
--- NOTE | 2019-05-31 19:10 | NUR ---
Awake, in bed. Not in distress. Denies any pain/discomforts at this time. Safety measure and fall precaution maintained. Continue care as planned
[2019-05-31] MEDS: GABAPENTIN 100 MG CAPSULE PO SCH ×2 (20:41→20:50)
--- NOTE | 2019-05-31 20:50 | NUR ---
Patient refused Gabapentin this time. Patient states she does not need it. Will endorse in Am shift.
[2019-05-31 21:36] VITALS: BP 134/57
[2019-06-01 04:30] VITALS: BP 120/69
[2019-06-01] MEDS: LEVOTHYROXINE SODIUM 25 MCG TABLET PO SCH (06:34)
[2019-06-01] MEDS: BLOOD SUGAR DIAGNOSTIC 1 EACH STRIP VI SCH ×4 (06:38→20:30)
--- NOTE | 2019-06-01 07:29 | NUR ---
Shift End report:VSS. Slept well. No complaint presented throughout the night. All needs attended and met. No significant event reported. Continue current rehab plan of care.
[2019-06-01 07:30] VITALS: BP 143/65
[2019-06-01] MEDS: INSULIN REGULAR, HUMAN 300 UNIT/3 ML VIAL SQ PRN ×4 (09:11→20:34)
[2019-06-01] MEDS: predniSONE 10 MG TABLET PO SCH (09:12)
[2019-06-01] MEDS: BUMETANIDE 1 MG TABLET PO SCH ×2 (09:12→17:07)
[2019-06-01] MEDS: DOCUSATE SODIUM 100 MG CAPSULE PO SCH ×2 (09:12→20:30)
[2019-06-01] MEDS: FAMOTIDINE 20 MG TABLET PO SCH ×2 (09:12→20:30)
[2019-06-01] MEDS: METOPROLOL TARTRATE 25 MG TABLET PO SCH ×2 (09:14→17:10)
--- NOTE | 2019-06-01 13:17 | NUR ---
INTERDISCIPLINARY TEAM CONFERENCE
[2019-06-01 16:39] VITALS: BP 125/68
[2019-06-01] MEDS ORDERED: WARFARIN SODIUM 2 MG TABLET PO SCH (17:00)
[2019-06-01] MEDS: WARFARIN SODIUM 1 MG TABLET PO SCH (17:25)
[2019-06-01 20:17] VITALS: BP 106/60
[2019-06-01] MEDS: GABAPENTIN 100 MG CAPSULE PO SCH (20:39)
--- NOTE | 2019-06-01 22:04 | NUR ---
Received patient A/O x 3. Farsi speaking but able to make needs known in Israeli. Family at bedside. O2 2L NC. No acute distress noted. HOB elevated. Denies pain or SOB. Safety initiated. Call light within reach. Will continue to monitor.
--- NOTE | 2019-06-02 05:52 | NUR ---
Patient slept t/o shift. No acute distress noted. Vital signs stable. Voided ok. Patient remains A/O x 3 and O2 2L NC. Safety and comfort measures maintained t/o shift. Med compliant. All meds given as ordered. All needs met.
[2019-06-02] MEDS: LEVOTHYROXINE SODIUM 25 MCG TABLET PO SCH (06:10)
[2019-06-02 06:17] VITALS: BP 116/66
[2019-06-02] MEDS: BLOOD SUGAR DIAGNOSTIC 1 EACH STRIP VI SCH ×4 (06:36→21:20)
[2019-06-02 07:20] LABS: ALANINE AMINOTRANSFERASE 21 U/L (14-59); ALKALINE PHOSPHATASE 58 U/L (50-136); ASPARTATE AMINOTRANSFERASE 22 U/L (15-37); BILIRUBIN,TOTAL 0.8 mg/dL (0.2-1.0); CARBON DIOXIDE 35 mmol/L (21-32); CHLORIDE 99 mmol/L (98-107); CREATININE 2.3 mg/dL (0.6-1.3); GLUCOSE 161 mg/dL (74-106); MAGNESIUM 2.3 mg/dL (1.8-2.4); PHOSPHOROUS 4.5 mg/dL (2.5-4.9); POTASSIUM 4.1 mmol/L (3.5-5.1); TOTAL PROTEIN, SERUM 7.3 g/dL (6.4-8.2)
[2019-06-02 07:25] LABS: UREA NITROGEN, BLOOD 87 mg/dL (7-18)
[2019-06-02 07:30] VITALS: BP 142/77
[2019-06-02] MEDS: FAMOTIDINE 20 MG TABLET PO SCH ×2 (08:38→21:18)
[2019-06-02] MEDS: DOCUSATE SODIUM 100 MG CAPSULE PO SCH ×2 (08:38→21:18)
[2019-06-02] MEDS: METOPROLOL TARTRATE 25 MG TABLET PO SCH ×2 (08:38→16:39)
[2019-06-02] MEDS: BUMETANIDE 1 MG TABLET PO SCH ×2 (08:38→16:38)
[2019-06-02] MEDS: predniSONE 10 MG TABLET PO SCH (08:39)
[2019-06-02] MEDS: INSULIN REGULAR, HUMAN 300 UNIT/3 ML VIAL SQ PRN ×4 (08:41→21:21)
[2019-06-02] MEDS ORDERED: predniSONE 5 MG TABLET PO SCH (09:00)
[2019-06-02 16:41] VITALS: BP 124/69
[2019-06-02] MEDS: WARFARIN SODIUM 1 MG TABLET PO SCH (16:41)
--- NOTE | 2019-06-02 19:35 | NUR ---
Received patient asleep on bed. No signs of distress at this time. Bed on locked position with two side rails up. Patient belongings and call light placed within reach.
[2019-06-02 20:56] VITALS: BP 110/60
[2019-06-02] MEDS: GABAPENTIN 100 MG CAPSULE PO SCH (21:18)
[2019-06-03 05:14] VITALS: BP 110/61
--- NOTE | 2019-06-03 06:00 | NUR ---
patient slept throughout the shift. no complaints of discomfort. encouraged patient to be off O2 support per MD orders, O2 saturating within 95%-100%. all needs attended and met. safe environment maintained at all times. call light within reach.
[2019-06-03] MEDS: LEVOTHYROXINE SODIUM 25 MCG TABLET PO SCH (06:16)
[2019-06-03] MEDS: BLOOD SUGAR DIAGNOSTIC 1 EACH STRIP VI SCH ×4 (06:21→20:16)
--- NOTE | 2019-06-03 07:17 | NUR ---
Nurse Notes: report obtained from the night nurse Jennifer Chino RN . patient is resting in bed. No complaints of any pain. In no respiratory distress. on room air. pulse ox is monitored.
[2019-06-03 07:58] VITALS: BP 122/66
[2019-06-03] MEDS: FAMOTIDINE 20 MG TABLET PO SCH ×2 (08:54→20:15)
[2019-06-03] MEDS: predniSONE 5 MG TABLET PO SCH (08:54)
[2019-06-03] MEDS: DOCUSATE SODIUM 100 MG CAPSULE PO SCH ×2 (08:54→20:15)
[2019-06-03] MEDS: BUMETANIDE 1 MG TABLET PO SCH ×2 (08:54→17:25)
[2019-06-03] MEDS: METOPROLOL TARTRATE 25 MG TABLET PO SCH ×2 (08:55→17:26)
[2019-06-03] MEDS: INSULIN REGULAR, HUMAN 300 UNIT/3 ML VIAL SQ PRN ×3 (12:12→20:18)
--- NOTE | 2019-06-03 12:15 | NUR ---
Nurse Notes: accu-check was 337, patient was given 8 units of regular insulin. patient is eating lunch now. No request for any pain medications. Patient is able to walk with walker in hallway.
--- NOTE | 2019-06-03 15:40 | NUR ---
Nurse Notes: report was handed off to charge nurse Jade Evans, patient is resting in bed napping. in no respiratory distress.
[2019-06-03 15:57] VITALS: BP 129/68
[2019-06-03] MEDS: WARFARIN SODIUM 1 MG TABLET PO SCH (17:29)
[2019-06-03] MEDS: GABAPENTIN 100 MG CAPSULE PO SCH (20:15)
--- NOTE | 2019-06-03 20:47 | NUR ---
Received pt ambulating in the hallway using walker. AAO x3. Farsi speaking, able to make needs known. No acute distress noted. Denies pain/ discomfort. Due med and insulin coverage given as ordered. Pt refused gabapentin. Risks and benefits explained. Offered x3, still refused. Safety measures maintained. Call light and personal belongings within reach. Will continue to monitor.
[2019-06-03 20:56] VITALS: BP 134/68
[2019-06-04 06:18] VITALS: BP 144/73
[2019-06-04] MEDS: LEVOTHYROXINE SODIUM 25 MCG TABLET PO SCH (06:32)
[2019-06-04] MEDS: BLOOD SUGAR DIAGNOSTIC 1 EACH STRIP VI SCH ×2 (06:32→11:40)
[2019-06-04 08:00] VITALS: BP 105/51
[2019-06-04] MEDS: BUMETANIDE 1 MG TABLET PO SCH (08:25)
[2019-06-04] MEDS: DOCUSATE SODIUM 100 MG CAPSULE PO SCH (08:25)
[2019-06-04] MEDS: predniSONE 5 MG TABLET PO SCH (08:26)
[2019-06-04] MEDS: FAMOTIDINE 20 MG TABLET PO SCH (08:26)
[2019-06-04 08:30] VITALS: BP 105/51
[2019-06-04] MEDS: METOPROLOL TARTRATE 25 MG TABLET PO SCH (08:30)
--- NOTE | 2019-06-04 08:30 | NUR ---
Patient awake, alert, oriented x 4, sitting on the side of the bed. No complain of any pain or discomfort. No dyspnea noted. Due medications administered and patient tolerated well. Assisted with her needs. Call light and frequently used items placed within reach.
[2019-06-04] MEDS: INSULIN REGULAR, HUMAN 300 UNIT/3 ML VIAL SQ PRN ×2 (08:34→11:40)
[2019-06-04] MEDS ORDERED: WARFARIN SODIUM 2 MG TABLET PO ONE (11:00)
--- NOTE | 2019-06-04 15:04 | NUR ---
Received an order from Dr. Parker for discharge to home with [facility]
--- NOTE | 2019-06-04 16:04 | NUR ---
Discharge instructions provided to the patient and son José Delarosa with verbalized understanding. Discharge papers signed by and given to the son. All belongings and valuables well accounted for and sent home with the patient. Patient remains alert, oriented x 4 not in any form of acute distress. She denies any pain or discomfort at this time. Assisted patient to the parking lot via wheelchair by FISHER SEAL. Patient picked up by son via private car.
== END 2019-06-04 16:00 | disposition home health service (06) | DRG 291 ==
PROVIDERS: ADMIT Physical Medicine & Rehabilitation Pain Medicine; ATTEND Physical Medicine & Rehabilitation Pain Medicine
DX: I13.0 Hypertensive heart and chronic kidney disease with heart failure and stage 1 through stage 4 chronic kidney disease, or unspecified chronic kidney disease (principal); I50.33 Acute on chronic diastolic (congestive) heart failure; J96.21 Acute and chronic respiratory failure with hypoxia; N17.0 Acute kidney failure with tubular necrosis; E44.0 Moderate protein-calorie malnutrition; I48.92 Unspecified atrial flutter; D68.59 Other primary thrombophilia; E03.9 Hypothyroidism, unspecified; E11.22 Type 2 diabetes mellitus with diabetic chronic kidney disease; E78.5 Hyperlipidemia, unspecified; I05.0 Rheumatic mitral stenosis; I48.2 Chronic atrial fibrillation; J44.9 Chronic obstructive pulmonary disease, unspecified; N18.3 Chronic kidney disease, stage 3 (moderate); K21.9 Gastro-esophageal reflux disease without esophagitis; I27.20 Pulmonary hypertension, unspecified; I70.0 Atherosclerosis of aorta; Z95.2 Presence of prosthetic heart valve; Z99.81 Dependence on supplemental oxygen; I25.10 Atherosclerotic heart disease of native coronary artery without angina pectoris; J84.10 Pulmonary fibrosis, unspecified; R20.2 Paresthesia of skin; E11.65 Type 2 diabetes mellitus with hyperglycemia; Z79.01 Long term (current) use of anticoagulants; Z95.1 Presence of aortocoronary bypass graft; M19.90 Unspecified osteoarthritis, unspecified site; E11.42 Type 2 diabetes mellitus with diabetic polyneuropathy; R53.1 Weakness
CPT/HCPCS: 36415; 83735; 83970; 84100; 84155; 84165; 85025; 85610; A4663; J1815; J7512